=== PATIENT | female | born 1990 | race Caucasian/White ===

== ENCOUNTER 2024-12-31 19:43 | Emergency (ER) | payer BC, SELFPAY ==
--- OUTSIDE RECORDS SUMMARY | 2024-12-31 19:44 | XMS_ITS | Encounter Summary ---
Author Organization [facility] Address [address] [place] [address] Care Team Providers Care Environmental Journalist Name Role Phone Cecil Reza MD Primary Care Provider [phone]- [phone] Encounter Details Date Type Department Care Team (Late st Contact Info) Description 08/12/2015 Nurse Triage Report [facility] ABSTRACTION Lilliam Menendez, RN Social History Tobacco Use Types Packs/Day Years Used Date Smoking Tobacco: Every Day Cigarettes 0.5 10 Alcohol Use Standard Drinks/Week Comments Yes 2.5 (1 standard drink = 0.6 oz p ure alcohol) socially Comments No Sex and Gender Information Value Date Recorded Sex Assigned at Not on file Legal Sex Female 7:24 PM ACCOUNT ANALYST Gender Identity Not on file Sexual Orientation Not on file Occupation Industry Job Start Date Job End Date Not on file Not on file Not on file Not on file documented as of this encounter Progress Notes * Lilliam Menendez RN - 08/12/2015 9:28 PM CST CHART DOCUMENTATION ONLY Call Type: Triage Call Presenting Problem: I have burning pain around the area of my cortizone shot. Report feedback to Dr. Ibrahim. Associated Symptoms: reddened, with slight swelling Onset: 2 hours ago Location: left Deltoid injection Pain Assessment: 1 - 10 with 10 being the most severe pain 6 Treatment so far for current presenting problem: ice pack, ibuprophen, History (Clinical Problems): received cortizone injection today due to bursitis of left shoulder (hypothyroid, Asthma) Medications: reviewed with pt per [facility] Medication reactions: Naprosen <<<<<<<< TRIAGE NOTE >>>>>>>> Triage Note: Surface Plate Inspector Lilliam Menendez added this note on Aug 12 2015 9:28PM: patient will follow care advice given and then follow up with provider tomorrow as needed. <<<<<<<< TRIAGE/OUTCOME >>>>>>>> Guideline Title: Puncture Wound Recommended Disposition: Call Provider within 24 Hours Original Inclination: Call Provider/See in 24 Intended Action: Call or See Provider within 24 hrs Physician Contacted: No Localized redness, drainage, swelling, warmth to touch, pain or a hard, knotty feeling over a vein at a recent venipuncture site (intravenous, blood draw, blood donation site etc.) ? YES UNT ANALYST documented in this encounter Plan of Treatment Upcoming Encounters Date Type Department Care Team (Late st Contact Info) Description 03/03/2025 10:30 AM CDT Office Visit [facility] Internal Medicine Swati Mauro [address] [place] [address] [place] [address] [place] [address] documented as of this encounter Visit Diagnoses Not on filedocumented in this encounter Care Teams Environmental Journalist Relationship Specialty [place] [address] [place] [address] PCP - General Internal Medicine 11/25/22 documented as of this encounter
--- OUTSIDE RECORDS SUMMARY | 2024-12-31 19:44 | XMS_ITS | Encounter Summary ---
Author Organization [facility] Address [address] [place] [address] Care Team Providers Care Sweet Pickle Maker Name Role Phone Cecil Reza MD Primary Care Provider +1- [phone] Reason for Visit * Reason Comments Medication Refill Encounter Details Date Type Department Care Team (Late Contact Info) Description 02/27/2019 Refill [facility] Maternal and Medicine - Medical [place] [address], [place] [address] Gregory Hutchins MD [address] [place] [address] Acquired hypothyroidism Social History Tobacco Use Types Packs/Day Years Used Date Smoking Tobacco: Every Day Cigarettes 0.5 15 Smokeless Tobacco: Never Alcohol Use Standard Drinks/Week Comments Not Currently 2.5 (1 standard drink = 0.6 oz p ure alcohol) socially Comments Yes Sex and Gender Information Value Date Recorded Sex Assigned at Not on file Legal Sex Female 7:24 PM DRAFTER (CAD) ELECTRICAL Gender Identity Not on file Sexual Orientation Not on file Occupation Industry Job Start Date Job End Date Not on file Not on file Not on file Not on file documented as of this encounter Plan of Treatment Upcoming Encounters Date Type Department Care Team (Late Contact Info) Description 03/03/2025 10:30 AM CDT Office Visit [facility] Internal Medicine Swati Mauro [address] [facility] [address] [place] [address] [place] [address] [place] [address] documented as of this encounter Visit Diagnoses Diagnosis Acquired hypothyroidism Unspecified hypothyroidism documented in this encounter Care Teams Sweet Pickle Maker Relationship Specialty [place] [address] [place] [address] PCP - General Internal Medicine 11/25/22 documented as of this encounter
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
--- OUTSIDE RECORDS SUMMARY | 2024-12-31 19:45 | XMS_ITS | Data Portability ---
Author Organization [facility] [place] , [facility] Address [address] [place] [address] Assessment No assessment recorded. Plan of Treatment Reminders Order Date Submit Date Provider Last Modified By Organization Details Last Modified Time Details Appointments None recorded. Lab test, urine 2021 022 lduffe [facility], [address] [place], [address], 13:41:38 Referral None recorded. Procedures None recorded. Surgeries None recorded. Imaging None recorded. Medication Orders None recorded. Patient TargetsNo targets recorded. Patient InstructionsNo instructions recorded. Reason for Referral None Reported. Results Created Date Observation Date Name Description Value Unit Range Abnormal Flag Note LastModifiedBy Organization Detail LastModifiedTime 01/29/20 22 01/28/2022 pregn zita test, urine HCG positi ve Not Available [facility] [address] [place], [address], 01/28/2022 12:06:02 01/31/2001/28/2022 imagi ng/di agnos tic resul t No observ ation record ed. ILENE Marroquin [address], [place], [address], 01/31/2022 08:25:44 Result Notes None recorded. Problems Name Problem SNOMED Code Status Onset Date Resolution Date Notes Provider Name and Address Organization Details Recorded Time Gestatio n period, 32 weeks 1501575 Completed 201810/31/2019 32 weeks gestatio n of pregnanc y; Progress : Stable Added By: Marv Monte Add to Current Problems : NO ProblemS tatus: Resolve Not Available [facility] 2 21:13:22 Normal pregnanc y in multigra franco [id number] Completed 201810/31/2019 Encounte r for supervis ion of other normal pregnanc y, third trimeste r; Progress : Stable Added By: Victorina Rodriguez Add to Current Problems : NO ProblemS tatus: Resolve Not Available [facility] 2 21:13:22 Antenata l screenin g Completed 201810/31/2019 Encounte r for other specifie d antenata l screenin g; Progress : Stable Added By: Brianna Wade Add to Current Problems : NO ProblemS tatus: Resolve Not Available [facility] 2 21:13:15 Hemoglob in A1C - diabetic control finding [id number] Completed 201810/31/2019 Other abnormal glucose; Progress : Stable Added By: Jazlyn Shi Add to Current Problems : NO ProblemS tatus: Resolve Not Available [facility] 2 19:43:19 Situatio n with explicit context Completed 201810/31/2019 Supervis ion of pregnanc y with other poor reproduc tive or obstetri c history, third trimeste r; Progress : Stable Added By: Jazlyn Shi Add to Current Problems : NO ProblemS tatus: Resolve Not Available [facility] 21:13:13 Gestatio n period, 33 weeks [id number] Completed 201810/31/2019 33 weeks gestatio n of pregnanc y; Progress : Stable Added By: Victorina Rodriguez Add to Current Problems : NO ProblemS tatus: Resolve Not Available [facility] 2 21:13:[address] Concept Completed 201810/31/2019 Supervis ion of other high risk pregnanc ies, third trimeste r; Progress : Stable Added By: Brianna Wade Add to Current Problems : NO ProblemS tatus: Resolve Not Available [facility] 2 21:13:22 Gestatio nal diabetes mellitus complica ting pregnanc y [id number] 106 Completed 201810/31/2019 Gestatio nal diabetes mellitus in pregnanc y, controll ed by oral hypoglyc emic drugs; Progress : Stable Added By: Brianna Wade Add to Current Problems : NO ProblemS tatus: Resolve Not Available [facility] 2 19:43:19 Gestatio n period, 38 weeks [id number] Completed 201910/31/2019 38 weeks gestatio n of pregnanc y; Progress : Stable Added By: Brianna Wade Add to Current Problems : NO ProblemS tatus: Resolve Not Available [facility] 21:13:14 Postpart um depressi on [id number] Completed 201910/31/2019 Postpart um depressi on; Progress : Stable Added By: Mira Valiente Add to Current Problems : NO ProblemS tatus: Resolve Not Available [facility] 2 21:13:20 Procedur e on genitour inary system Completed 201910/31/2019 Encounte r for surgical aftercar e followin g surgery on the genitour inary system; Progress : Stable Added By: Michael Tovar Add to Current Problems : NO ProblemS tatus: Resolve Not Available [facility] 19:43:19 Postoper ative care Completed 201910/31/2019 Encounte r for surgical aftercar e followin g surgery on the genitour inary system; Progress : Stable Added By: Michael Tovar Add to Current Problems : NO ProblemS tatus: Resolve Not Available [facility] 2 19:43:19 Acute vaginiti s [id number] Active 2019 Acute vaginiti s; Progress : Stable Added By: Michael Tovar Add to Current Problems : YES ProblemS tatus: Current Not Available [facility] 21:13:15 Infectio n by Trichomo catie [id number] Active 2019 Trichomo niasis, unspecif ied; Progress : Stable Added By: Lissett Navarrete i Add to Current Problems : YES ProblemS tatus: Current Not Available [facility] 2 21:13:12 Problem Notes None recorded. Procedures Surgical History Date Name Laterality Status Provider Name and Address Organization Details Recorded Time section completed [facility] 01/10/2022 22:36:58 Carpal tunnel surgery [facility] [place] 01/10/2022 22:37:06 Imaging Results None recorded. Procedure Notes None recorded. Medical Equipment None Reported. Allergies Allergen ID Allergen Name Allergen Category Reaction Reaction Severity Criticality Documentation Date Start Date Code Code System Note Provider Name and Address Organization Details Recorded Time 166608 Augmentin medicatio n Not available Not available Not available 03/26/20212018 46399 2 RxNorm Sever ity: Moder ate; Not Available [facility] 01:12:23 025695 Compazine medicatio n Not available Not available Not available 03/26/20212018 27699 6 RxNorm Sever ity: Moder ate; Not Available [facility] 01:12:23 938972 naproxen medicatio n Not available Not available Not available 03/26/20212018 7258 RxNorm Sever ity: Moder ate; Not Available [facility] 01:12:23 Medications Name Sig Start Date Stop Date Status Note LastModified by Organization Details LastModified Time celecoxib 200 mg capsule TAKE 1 CAPSULE BY MOUTH TWICE DAILY active Not Available Not Available No t Available cyclobenz aprine 10 mg tablet TAKE 1 TABLET BY MOUTH THREE TIMES DAILY NEEDED FOR SPASM active Not Available Not Available No t Available metformin 500 mg tablet take 1 tablet (500 mg) by oral route 2 times per day with morning andeveni ng meals 10/30 completed metFORMI N 500 mg oral tablet RxNorm: [id number] Allow Substitu tion: False Refill Denied: No Refill DateOccu rred: 05/07/20 19 Edited by: Lissett Carbajal ) on 10/31/19 Stopped by: seth rosa(Lissett Mckeon ) on 10/31/19 20 Not Available Not Available Not Available levothyro xine 175 mcg tablet TAKE 1 TABLET BY MOUTH ONCE DAILY IN THE MORNING active Not Available Not Available No t Available albuterol sulfate 0.63 mg/3 mL solution for nebulizat ion 10/30 completed albutero l sulfate 0.63 mg/3 mL Inhalati on Solution for Nebuliza tion RxNorm: [id number] Allow Substitu tion: False Refill Denied: No Refill DateOccu rred: 10/24/19 Edited by: Lissett Carbajal ) on 10/31/19 Stopped by: Lissett Carbajal ) on 10/31/19 Not Available Not Available Not Available bupropion HCl SR 150 mg tablet,12 hr sustained -release TAKE 2 TABLETS BY MOUTH IN THE MORNING AND TAKE 1 TAB BY MOUTH IN THE EVENING active Not Available Not Available No t Available Euthyrox 200 mcg tablet TAKE 1 TABLET BY MOUTH ONCE DAILY active Not Available Not Available No t Available nabumeton e 750 mg tablet TAKE 1 TABLET BY MOUTH TWICE DAILY active Not Available Not Available No t Available clindamyc in HCl 300 mg capsule TAKE 1 CAPSULE BY MOUTH EVERY 8 HOURS FOR 5 DAYS active Not Available Not Available No t Available azithromy aishwarya 250 mg tablet TAKE 2 TABLETS BY MOUTH ON DAY 1, AND THEN TAKE 1 TABLET BY MOUTH ONCE A DAY ON DAY 2 THROUGH DAY 5 active Not Available Not Available No t Available fluconazo le 150 mg tablet take 1 tablet (150 mg) by oral route once, repeat in 3 days if symtpoms unresolv ed 10/30 completed fluconaz ole 150 mg oral tablet RxNorm: [id number] Allow Substitu tion: True Refill Denied: No Edited by: Lissett Carbajal ) on 10/31/19 Stopped by: seth rosa(Lissett Mckeon ) on 10/31/19 Not Available Not Available Not Available clomiphen e citrate 50 mg tablet TAKE 2 TABLETS BY MOUTH DAILY ON DAYS 5-9 OF CYCLE active Not Available Not Available No t Available liothyron ine 25 mcg tablet TAKE 1 TABLET BY MOUTH ONCE DAILY active Not Available Not Available No t Available meloxicam 15 mg tablet TAKE 1 TABLET BY MOUTH ONCE DAILY active Not Available Not Available No t Available metronida zole 0.75 % (37.5 mg/5 gram) vaginal gel INSERT 1 APPLICAT ORFUL VAGINALL Y DAILY AT BEDTIME FOR 5 DAYS active Not Available Not Available No t Available ondansetr on HCl 4 mg tablet TAKE 1 TABLET BY MOUTH EVERY 8 HOURS NEEDED FOR NAUSEA active Not Available Not Available No t Available metronida zole 500 mg tablet TAKE 1 TABLET BY MOUTH TWICE DAILY active Not Available Not Available No t Available liothyron ine 5 mcg tablet TAKE 2 TABLETS BY MOUTH ONCE DAILY active Not Available Not Available No t Available tramadol 50 mg tablet TAKE 1 TABLET BY MOUTH ONCE DAILY NEEDED FOR PAIN active Not Available Not Available No t Available amoxicill in 500 mg tablet TAKE 1 TABLET BY MOUTH TWICE DAILY FOR 10 DAYS 01/28 completed Not Available Not Available Not Available paroxetin e 20 mg tablet TAKE 1 TABLET BY MOUTH ONCE DAILY active Not Available Not Available No t Available diclofena c sodium 75 mg tablet,de layed release TAKE 1 TABLET BY MOUTH TWICE DAILY NEEDED FOR PAIN. active Not Available Not Available No t Available Euthyrox 50 mcg tablet TAKE 1 TABLET BY MOUTH ONCE DAILY IN THE MORNING active Not Available Not Available No t Available azelastin e 137 mcg (0.1 %) nasal spray USE 2 SPRAY(S) IN EACH NOSTRIL TWICE DAILY active Not Available Not Available No t Available methylpre dnisolone 4 mg tablets in a dose pack TAKE DIRECTED PER PACKAGE INSTRUCT ION active Not Available Not Available No t Available albuterol sulfate HFA 90 mcg/actua tion aerosol inhaler INHALE 2 PUFFS BY MOUTH EVERY 8 HOURS NEEDED FOR SHORTNES S OF BREATH active Not Available Not Available No t Available norethind amaris (contrace ptive) 0.35 mg tablet TAKE 1 TABLET BY MOUTH DAILY active Not Available Not Available No t Available Columb[place] 5 mg-325 mg tablet take 1 tablet by oral route every 4 hours as needed for pain 10/23 completed [place] 5-325 mg oral tablet RxNorm: [id number] Allow Substitu tion: True Refill Denied: No Edited by: Roxann Salas ) on 10/24/19 Stopped by: Roxann Salas ) on 10/24/19 20 Not Available Not Available Not Available ondansetr on 4 mg disintegr ating tablet DISSOLVE 1 TABLET ON TOP OF TONGUE THEN SWALLOW WITH SALIVA EVERY 8 HOURS NEEDED FOR NAUSEA/E MESIS. active Not Available Not Available No t Available Lovenox 40 mg/0.4 mL subcutane ous syringe inject 0.4 millilit er (40 mg) by subcutan eous route twice daily 10/23 completed Lovenox 40 mg/0.4 mL subcutan eous Syringe RxNorm: [id number] Allow Substitu tion: True Refill Denied: No Edited by: Roxann Salas ) on 10/24/19 Stopped by: Roxann Salas ) on 10/24/19 Not Available Not Available Not Available Adderall XR 15 mg capsule,e xtended release TAKE 1 CAPSULE BY MOUTH ONCE DAILY IN THE MORNING 01/28 completed Not Available Not Available Not Available chlorhexi dine gluconate 0.12 % mouthwash SWISH 15ML BY MOUTH FOR 30 SECONDS AND SPIT TWICE DAILY NEEDED active Not Available Not Available No t Available heparin (porcine) 10/23 completed heparin (porcine ) RxNorm: [id number] Allow Substitu tion: False Refill Denied: No Refill DateOccu rred: 05/17/20 19 Edited by: Roxann Salas ) on 10/24/19 20 Stopped by: Roxann Salas ) on 10/24/19 Not Available Not Available Not Available 10/30 completed Allow Substitu tion: False Refill Denied: No Refill DateOccu rred: 05/07/20 19 Edited by: Lissett Carbajal ) on 10/31/19 20 Stopped by: seth rosa(Lissett Mckeon ) on 10/31/19 20 Not Available Not Available Not Available Wellbutri n SR 10/30 completed Wellbutr in SR RxNorm: [id number] Allow Substitu tion: False Refill Denied: No Refill DateOccu rred: 05/07/20 19 Edited by: Lissett Carbajal ) on 10/31/19 20 Stopped by: seth rosa(Lissett Mckeon ) on 10/31/19 20 Not Available Not Available Not Available Symbicort 80 mcg-4.5 mcg/actua tion HFA aerosol inhaler INHALE 2 PUFFS BY MOUTH TWICE DAILY active Not Available Not Available No t Available levocetir izine 5 mg tablet TAKE 1 TABLET BY MOUTH ONCE DAILY active Not Available Not Available No t Available Allergy Relief (cetirizi ne) 10 mg tablet TAKE 1 TABLET BY MOUTH ONCE DAILY active Not Available Not Available No t Available TYPEWRITER OPERATOR AUTOMATIC-PNV-DH A 28 mg iron-1 mg-200 mg capsule TAKE 1 CAPSULE BY MOUTH ONCE DAILY active Not Available Not Available No t Available Trelegy Ellipta 100 mcg-62.5 mcg-25 mcg powder for inhalatio n INHALE 1 PUFF ONCE DAILY. RINSE MOUTH AFTER USE. active Not Available Not Available No t Available ID NOW COVID-19 Test Kit TEST DIRECTED TODAY 01/28 completed Not Available Not Available Not Available Vitals None Recorded Social History None recorded. Functional Status None recorded. Mental Status None recorded. Family History Relationship Description Onset Age of this Age Resolved Age Notes LastModified by Organization Details LastModified Time Father No current problems or disability [email or web address] Not available 01/2022 22:39:05 Mother No current problems or disability [email or web address] Not available 01/2022 22:39:05 Medical History Condition Response Hypothyroidism Y Deep Vein Thrombosis Y Asthma Y Pulmonary Embolism Y Gynecological History Statement/Question Response Date of Last Pap Smear Current Control Method None Age at Menarche 12 Obstetrics History GPAL:G 4 P 4 0 2 1 Type Value Full Term 4 Spontaneous 2 Living 1 Total 4 Past Encounters Encounter ID Performer Location Encounter Start Date Encounter Closed Date Diagnosis/Indication Diagnosis SNOMED-CT Code Diagnosis ICD10 Code Diagnosis Note [id number] NISHA HARTLEY [facility] [address] [place] [address] 01/28/2022 12:00:00 01/28/2022 13:41:50 [id number] Z33.1 Health Concerns Section Related Observation LastModified by Organization Detai ls LastModified Time None Recorded Concern Status LastModified by Organization Details LastModified Time None Recorded Advance Directives Directive None Recorded Payers Insurance Date Sequence Insurance Name Policy Number Policy Fine Covered Member ID Fine Member ID Guarantor Name 01/31/2022 1 [facility] Willa Preciado [id number] Willa Preciado OBGyn Episode Ob Episode Information Episode Created Date Number of Fetuses Patient Bloodtype Patient rh Status Prepregnancy Weight lbs Domestic Partner Domestic Partner Phone Father Name [employer] Status 08/20/19 22 1 CLOSED Fetus Data First Name Last Name Admitted to NICU Weight (g) Sex Living Outcome Pediatric Complications Fetus ID Race Codes Race Delivery Type [phone] F [id number] Dexter Calculation Initial Dexter Date Initial Exam Date Initial Exam Provider Initial Ultrasound Date Last Menstrual Period Date Ultra Sound Weeks Gestation 0 Eighteen To Twenty Week Dexter Update Ultra Sound Date Fundal Height At Umbil Quickening Date Ultra Sound Latest Weeks Gestation Final Dexter Confirmed By Final Dexter Confirmed Date Final Dexter Date Ultra Sound Latest Days Gestation 0 0 Menstrual History Last Menstrual Date Menses Monthly On Bcp Conception Prior Menses Frequency Hcg Plus Date Menarche Onset Age Delivery Information Delivery Date Delivery Type Labor Anesthesia Weeks Gestation Incision Type Labor Labor Length Hrs Delivered By Post Complications Tubal Sterilization Discharge Date Comments 8 None 238 true FDIU Discharge Information Feeding Method Contraceptive Method Maternal HG B and HCT Levels Ob Episode Information Episode Created Date Number of Fetuses Patient Bloodtype Patient rh Status Prepregnancy Weight lbs Domestic Partner Domestic Partner Phone Father Name [employer] Status 08/20/19 22 1 CLOSED Fetus Data First Name Last Name Admitted to NICU Weight (g) Sex Living Outcome Pediatric Complications Fetus ID Race Codes Race Delivery Type 2721.55 2 F [id number] Dexter Calculation Initial Dexter Date Initial Exam Date Initial Exam Provider Initial Ultrasound Date Last Menstrual Period Date Ultra Sound Weeks Gestation 0 Eighteen To Twenty Week Dexter Update Ultra Sound Date Fundal Height At Umbil Quickening Date Ultra Sound Latest Weeks Gestation Final Dexter Confirmed By Final Dexter Confirmed Date Final Dexter Date Ultra Sound Latest Days Gestation 0 0 Menstrual History Last Menstrual Date Menses Monthly On Bcp Conception Prior Menses Frequency Hcg Plus Date Menarche Onset Age Delivery Information Delivery Date Delivery Type Labor Anesthesia Weeks Gestation Incision Type Labor Labor Length Hrs Delivered By Post Complications Tubal Sterilization Discharge Date Comments 0 271 false Discharge Information Feeding Method Contraceptive Method Maternal HG B and HCT Levels
--- OUTSIDE RECORDS SUMMARY | 2024-12-31 19:45 | XMS_ITS | Clinical Summary ---
Author Organization [facility] Address [address] [place] [address] Phone Care Team Providers Care Computer Systems Integrator Name Role Phone Cecil Reza MD Primary Care Provider [phone]- [phone] Allergies Active Allergy Reactions Criticality Noted Date Comments Amoxicillin-Pot Clavulanate Nausea and Vomiting Low 09/06/2017 Banana Rash Low 02/01/2016 Latex Rash Low 12/03/2018 Metoclopramide Hcl Other (See Comments) 03/07/2016 irritable Naproxen Nausea and Vomiting Low 05/15/2014 Prochlorperazine Other (See Comments) 01/30/2016 Irritable, anxiety Medications Allergy Relief, cetirizine, 10 mg tabletIndications :Allergic rhinitis, unspecified seasonality, unspecified trigger Take 1 tablet by mouth once daily 90 Tablet 01/28/20 22 Active methadone HCl (METHADONE INTENSOL ORAL) Take 170 mg by mouth daily. Active ferrous sulfate 325 mg (65 mg iron) tablet Take 60 mg by mouth daily. Active cholecalciferol, vitamin D3, 1,000 unit Take 1,000 Units by mouth daily. 11/11/19 23 Active liothyronine 25 mcg tablet Take 25 mcg by mouth daily. Active metFORMIN (GLUCOPHAGE) 500 mg tablet Take 1,000 mg by mouth 2 times daily. 11/10/19 23 Active ibuprofen (MOTRIN) 800 mg tablet Take 800 mg by mouth every 6 hours as needed for Pain. 10/15/19 23 Active levothyroxine 300 mcg tablet Take 300 mcg by mouth daily. Active celecoxib (CeleBREX) 200 mg capsule Take 1 Capsule (200 mg) by mouth 2 times daily. 200 Capsule 3 06/19/19 25 Active triamcinolone acetonide (KENALOG) 0.1 % Cream Apply to affected area 2 times daily. 45 Gram 06/28/19 25 Active norethindrone-e.e stradioL-iron (Lo Loestrin Fe) 1 mg-10 mcg (24)/10 mcg (2) Tablet per tabletIndications :Abnormal uterine bleeding Take 1 Tablet by mouth daily. 84 Tablet 06/28/19 25 Active docusate sodium (COLACE) 100 mg capsule Take 1 Capsule (100 mg) by mouth 2 times daily. 60 Capsule 09/11/19 25 Active Trelegy Ellipta 100-62.5-25 mcg Disk with DeviceIndications :Mild intermittent asthma without complication INHALE 1 PUFF ONCE DAILY RINSE MOUTH AFTER USE 60 Each 3 12/12/19 25 Active albuterol-budeson vanna (Airsupra) 90-80 mcg/actuation HFA Aerosol InhalerIndication s:Moderate persistent asthma without complication Take 11 Grams by inhalation every 6 hours. 11 Gram 3 12/12/19 25 Active amphetamine-dextr oamphetamine (Adderall XR) 30 mg Extended Release 24 hour capsuleIndication s:Attention deficit hyperactivity disorder (ADHD), unspecified ADHD type Take 1 Capsule (30 mg) by mouth daily in the morning. Max Daily Amount: 30 mg 30 Capsule 12/20/19 25 Active Trelegy Ellipta 100-62.5-25 mcg Disk with DeviceIndications :Mild intermittent asthma without complication INHALE 1 PUFF ONCE DAILY RINSE MOUTH AFTER USE 60 Each 10/23/19 25 025 Discontin ued(Reord er) amphetamine-dextr oamphetamine (Adderall XR) 30 mg Extended Release 24 hour capsuleIndication s:Attention deficit hyperactivity disorder (ADHD), unspecified ADHD type Take 1 Capsule (30 mg) by mouth daily in the morning. Max Daily Amount: 30 mg 30 Capsule 10/23/19 25 025 Discontin ued(Reord er) albuterol-budeson vanna (Airsupra) 90-80 mcg/actuation HFA Aerosol InhalerIndication s:Moderate persistent asthma without complication Take 11 Grams by inhalation every 6 hours. 11 Gram 3 10/23/19 25 025 Discontin ued(Reord er) amphetamine-dextr oamphetamine (Adderall XR) 30 mg Extended Release 24 hour capsuleIndication s:Attention deficit hyperactivity disorder (ADHD), unspecified ADHD type Take 1 Capsule (30 mg) by mouth daily in the morning. Max Daily Amount: 30 mg 30 Capsule 12/12/19 25 025 Discontin ued(Reord er) Active Problems Problem Noted Date Diagnosed Date [facility] 06/21/22 - girl Lu - JW 06/21/2022 headache in third trimester 05/30/2022 Pain of round ligament affecting , ante 04/21/2022 Vaginal bleeding in 12/21/2021 Chronic midline low back pain without sciatica 0 03/02/2020 History of depression 12/24/2018 Personal history of DVT (deep vein thrombosis) 0 12/03/2018 Cannabis use disorder, mild, abuse 11/21/2017 Mild intermittent asthma without complication PCOS (polycystic ovarian syndrome) 11/21/2017 Acquired hypothyroidism 11/21/2017 Tobacco abuse 11/21/2017 Bacterial vaginitis Resolved Problems Problem Noted Date Diagnosed Date Resolved Date Uterine contractions during 06/21/2022 06/21/2022 History of drug abuse (Methamphetamine) 02/25/2019 03/02/2020 Severe episode of recurrent major depressive disorder, without psychotic features 11/21/2017 KHLOE (generalized anxiety disorder) 11/21/2017 12/24/2018 Gastroesophageal reflux dise ase without esophagitis 11/21/2017 03/13/2019 Leukocytosis 10/06/2016 12/24/2018 Gastritis 10/06/2016 12/24/2018 Depression 05/10/2016 12/24/2018 NAFLD (nonalcoholic fatty liver disease) 04/27/2016 10/10/2016 Functional vomiting 02/04/2016 10/11/19 17 Anxiety 02/04/2016 12/24/2018 Cyst of right ovary 02/04/2016 12/25/19 19 Overview (02/04/2016): 2 cm Nausea and vomiting 01/30/2016 12/25/19 19 Tobacco use 01/04/2015 03/13/2019 Routine general medical exam ination at a health care facility 01/04/2015 12/24/2018 Laceration of ankle 01/04/2015 12/25/19 19 Depression, major, severe recurrence 01/04/2015 12/24/2018 Melena 05/28/2014 10/10/2016 Drug abuse, amphetamine type 05/28/2014 03/13/2019 Hypothyroid in , an tepartum, second trimester 05/28/2014 03/02/2020 PUD (peptic ulcer disease) 05/28/2014 0 12/24/2018 Abdominal pain 05/27/2014 12/24/2018 Generalized abdominal pain 0 10/10/2016 Threatened in first trimester 12/24/2018 Thromboembolism 12/24/2018 Abdominal cramping affecting 12/24/2018 Encounters Date Type Department Care Team Description 12/18/2024 External Device Data [facility] ABSTRACTION Provider, Abstract 12/18/2024 External Device Data [facility] ABSTRACTION Provider, Abstract 12/16/2024 Medication Prior Auth Encounter [facility] Prescription Management Dept [address] [place] [address] [place] [address] Maria G Quinones, PHARMACIST 12/10/2024 [facility] Internal Medicine [facility] [address] [place] [address] Judy Zimmer FNP Moderate persistent asthma without complication 12/10/2024 [facility] SENIOR PRIVATE CLIENT ADVISOR - Medical [facility] [address] [facility] [address] [place] [phone] Angela Guajardo, FAREED 12/10/2024 [facility] Internal Medicine [facility] [address] [place] [address] Cecil Reza MD Mild intermittent asthma without complication; Attention deficit hyperactivity disorder (ADHD), unspecified ADHD type 11/20/2024 External Device Data [facility] ABSTRACTION Provider, Abstract 10/22/2024 [facility] SENIOR PRIVATE CLIENT ADVISOR [facility] [address] [place] [address] Narinder Roberts MD 10/22/2024 [facility] Internal Medicine Swati Mauro [address] [place], [place] [address] Judy Zimmer FNP Moderate persistent asthma without complication 10/22/2024 [facility] Internal Medicine [place] Ma[place] [address] [place] [address] Cecil Reza MD Mild intermittent asthma without complication; Attention deficit hyperactivity disorder (ADHD), unspecified ADHD type from Last 3 Months Immunizations Immunization Administration Dates Next Due (ADACEL/BOOSTRIX)(10 YR UP) TDAP VACCINE, 0.5ML, IM 04/19/2022,06/10/2019,06/10/2019,04/26,02/12/2017,02/12/2017,06/09/2015 ,06/09/2015 (PNEUMOVAX 23)(50 YRS UP) PN EUMOCOCCAL POLYSACCHARIDE (PPV23) 0.5 ML, IM 01/31/2016,03/17/2010 (TENIVAC)(7 YRS UP) TETANUS AND DIPHTHERIA TOXOIDS, ADSORBED (5 LF OF TETANUS TOXOID AND 2 LF OF DIPHTHERIA TOXOID), 0.5ML (PF), IM 06/11/2008 (VARIVAX)(12 MOS UP)VARICELL A VIRUS VACCINE (PF) 0.5 ML, SUB CUT 05/05/2020 INFLUENZA VACCINE QUADRIVALE NT 3 YR UP PF IM 02/09/2017 INFLUENZA VACCINE QUADRIVALE NT 6 MOS UP PF IM 02/23/2022,06/09/2021,03/02/2020,04/26,02/12/2018 INFLUENZA VACCINE TRIVALENT SPLIT VIRUS, (6 MOS UP), 0.5ML (PF), IM 02/29/2024 Influenza Vaccine Tri Split 4+ Pf Im 02/03/2010 Influenza, Unspecified Formulation 02/25,04/05/2019,03/09/2016,03/17 Pneumococcal Polysaccharide Vacc 23-neela IM SCHIP 03/17/2010,02/03/2010 Family History Medical History Relation Name Comments Healthy Daughter 1 Healthy Daughter 2 Unknown Father High Cholesterol Maternal Grandmother Olivia Hypertension Maternal Grandmother Olivia Diabetes Maternal Uncle Heart Disease Mother Samira fr om myocarditis. Sudden onset Colon Cancer Neg Hx Relation Name Status Comments Daughter 1 Alive Daughter 2 Alive Father Other Maternal Grandmother Olivia Maternal Uncle Mother Samira Social History Tobacco Use Types Packs/Day Years Used Date Smoking Tobacco: Every Day Cigarettes 1 15 Smokeless Tobacco: Never Tobacco Cessation:Ready to Q uit: Not Asked; Counseling Given: Not Answered Comments:smoking 1/2 pack a day Alcohol Use Standard Drinks/Week Comments Not Currently 3 (1 standard drink = 0.6 oz pur e alcohol) socially Comments No Sex and Gender Information Value Date Recorded Sex Assigned at Not on file Legal Sex Female 7:24 PM LOADING DOCK HELPER Gender Identity Not on file Sexual Orientation Not on file Occupation Industry Job Start Date Job End Date Not on file Not on file Not on file Not on file Last Filed Vital Signs Vital Sign Reading Time Taken Comments Blood Pressure 110/74 04/18/2024 1:05 PM LOADING DOCK HELPER Pulse 84 04/18/2024 1:05 PM LOADING DOCK HELPER Temperature 36.6 C (97.8 F) 04/18/2024 1:05 PM LOADING DOCK HELPER Respiratory Rate 18 06/26/2022 7:52 AM LOADING DOCK HELPER Oxygen Saturation 98% 04/18/2024 1:05 PM LOADING DOCK HELPER Inhaled Oxygen Concentration - - Weight 102.1 kg (225 lb) 04/18/2024 1:05 PM LOADING DOCK HELPER Height 170.2 cm (5' 7) 04/18/2024 1:05 PM LOADING DOCK HELPER Body Mass Index 35.24 04/18/2024 1:05 PM LOADING DOCK HELPER Plan of Treatment Upcoming Encounters Date Type Department Care Team (Late st Contact Info) Description 03/03/2025 10:30 AM CDT Office Visit [facility] Internal Medicine Swati Mauro [address] [place] [address] [place] [address] [place] [address] Health Maintenance Due Date Last Done Comments HPV VACCINES (1 - 3-dose series) 2004 DIABETES ANNUAL RETINAL EXAM 2007 DIABETES MICROALBUMIN ANNUAL SCREEN 2007 LDL CHOLESTEROL ANNUAL 2007 HEPATITIS B VACCINES (1 of 3 - 19+ 3-dose series) 2008 DIABETES ANNUAL FOOT EXAM 07/06/2022 07/06/2021 DIABETES HBA1C Q 6 MONTHS 07/30/20222021, 05/05/2020, 09/06/2017 DIABETES: A1C (Auto Order) 01/27/202301/27, 05/05/2020, 09/06/2017 PAP SMEAR 04/21/2024 04/21/2021, 03/05, 10/17/2017 INFLUENZA VACCINE (#1) 2025 , 02/23/2022, 06/09/2021, Additional history exists CERVICAL CANCER SCREENING 04/21/2026 HPV/Cotest (21-29) 04/21/2026 04/21/2021, 1 , 10/17/2017 HPV/Cotest (30-65) 04/21/2026 04/21/2021, 1 , 10/17/2017 DTAP/TDAP/TD VACCINES (9 - T d or Tdap) 04/19/2032 04/19/2022, 06/10/2019, 06/10/2019, Additional history exists Procedures Procedure Name Priority Date/Time Associated Diagnosis Comments HEMOGLOBIN A1C Routine 01/27/2022 11:18 AM CDT CERV/VAG CYTO SCREEN PAP RLFX HPV Routine 04/21/2021 12:00 AM LOADING DOCK HELPER Well woman exam with routine gynecological exam from Last 3 Months or Most Recently Relevant to Health Maintenance Results * HEMOGLOBIN A1C (01/27/2022 11:18 AM CDT) HEMOGLOBIN A1C 4.9 <5.7 % of total Hgb [facility] Comment: For the purpose of screening for the presence of diabetes: <5.7% Consistent with the absence of diabetes 5.7-6.4% Consistent with increased risk for diabetes (prediabetes) > or =6.5% Consistent with diabetes This assay result is consistent with a decreased risk of diabetes. Currently, no consensus exists regarding use of hemoglobin A1c for diagnosis of diabetes in children. According to [place] Diabetes Association (ADA) guidelines, hemoglobin A1c <7.0% represents optimal control in non- diabetic patients. Different metrics may apply to specific patient populations. Standards of Medical Care in Diabetes(ADA). ESTIMATED AVERAGE GLUCOSE (MG/DL) 94 mg/dL [facility] [employer] [facility] ESTIMATED AVERAGE GLUCOSE (MMOL/L) 5.2 mmol/L [facility] hector [facility] Comment: FASTING:UNKNOWN FASTING: UNKNOWN Test Performed at: [place] [address] [address] [place] [address] Erica[facility]Mis Howe Vo 01/27/2022 11:1 8 AM CDT 01/27/2022 11:20 AM CDT Haylee Hong MD CHEMISTRY ORDERABLES Final Result [facility] [phone] [place] [address] [address] [place] [address] * CERV/VAG CYTO SCREEN PAP RLFX HPV (04/21/2021 12:00 AM LOADING DOCK HELPER) CLINICAL INFORMATION [facility] Comment:SCREENING LAST MENSTRUAL PERIOD [facility] Comment:INFORMATION NOT PROV IDED PREV PAP: [facility] Comment:INFORMATION NOT PROV IDED PREV BX: [facility] Comment:INFORMATION NOT PROV IDED SOURCE [facility] Comment:Endocervix ADEQUACY: [facility] Comment: Satisfactory for evaluation. Endocervical/transformation zone component present. Age and/or menstrual status not provided PAP INTERP [facility] Comment:Negative for intraep ithelial lesion or malignancy. COMMENT (PAP TEST) [facility] Comment: This Pap test has been evaluated with computer assisted technology. CHIEF CATALYST OPERATOR: [facility] Comment: SOUTH, CT(ASCP) CT screening location: [place] [address] [address] [place] [address] EXPLANATORY NOTE [facility] Comment: EXPLANATORY NOTE: The Pap is a screening test for cervical cancer. It is not a diagnostic test and is subject to false negative and false positive results. It is most reliable when a satisfactory sample, regularly obtained, is submitted with relevant clinical findings and history, and when the Pap result is evaluated along with historic and current clinical information. Test Performed at: [place] [address] [address] [place] [address] [facility] Vo Genital SWAB OF ENDOCERVIX / Unknown 04/21/2021 04/22/2021 9:27 PM LOADING DOCK HELPER us Narinder Roberts MD PATHOLOGY/CYTOLOGY ORDERABL ES Final Result [facility] [address] [place] [address] from Last 3 Months or Most Recently Relevant to Health Maintenance Insurance RX INFOCROSSING Medicaid RX [employer] PLANS (INTERNAL) [facility] [place] [address] [employer]ANGE [place] Advance Directives For more information, please contact: [phone] * Full Code (Latest Code Status on File) Date Activated Date Inactivated Comments 06/22/2022 2:48 AM 06/26/2022 2:45 PM * Full Code Date Activated Date Inactivated Comments 06/21/2022 8:08 PM 06/22/2022 2:48 AM * Full Code Date Activated Date Inactivated Comments 05/30/2022 3:32 PM 05/30/2022 7:19 PM * Full Code Date Activated Date Inactivated Comments 04/21/2022 11:24 AM 04/21/2022 4:10 PM * Full Code Date Activated Date Inactivated Comments 12/21/2021 2:25 PM 12/21/2021 6:51 PM Care Teams Computer Systems Integrator Relationship Specialty [place] [address] [place] [address] PCP - General Internal Medicine 11/25/22
--- OUTSIDE RECORDS SUMMARY | 2024-12-31 19:45 | XMS_ITS | Encounter Summary ---
Author Organization [facility] Address [address] [place] [address] Care Team Providers Care Sleeve Setter Name Role Phone Cecil Reza MD Primary Care Provider [phone]- [phone] Reason for Visit * Reason Comments Medication Refill Encounter Details Date Type Department Care Team (Late st Contact Info) Description 04/18/2016 Refill [facility] [address] , [address] [phone] Loni Kemp, PANELBOARD TANK PUMPER [address] [address] Social History Tobacco Use Types Packs/Day Years Used Date Smoking Tobacco: Every Day Cigarettes 1 12 Alcohol Use Standard Drinks/Week Comments Yes 2.5 (1 standard drink = 0.6 oz p ure alcohol) socially Comments No Sex and Gender Information Value Date Recorded Sex Assigned at Not on file Legal Sex Female 7:24 PM PAPER SEALER Gender Identity Not on file Sexual Orientation Not on file Occupation Industry Job Start Date Job End Date Not on file Not on file Not on file Not on file documented as of this encounter Plan of Treatment Upcoming Encounters Date Type Department Care Team (Late st Contact Info) Description 03/03/2025 10:30 AM CDT Office Visit [facility] Internal Medicine Swati Mauro [address] [place] [address] [place] [address] [place] [address] documented as of this encounter Visit Diagnoses Not on filedocumented in this encounter Care Teams Sleeve Setter Relationship Specialty [place] [address] [facility] [facility] [address] [place] [address] PCP - General Internal Medicine 11/25/22 documented as of this encounter
--- OUTSIDE RECORDS SUMMARY | 2024-12-31 19:45 | XMS_ITS | Clinical Summary ---
Author Organization [facility] Address [address] [place] [address] Care Team Providers Care Rn Ent Name Role Phone Narinder Roberts MD Primary Care Provider Allergies Active Allergy Reactions Criticality Noted Date Comments Latex Rash Medium 04/23/2019 Medications buPROPion SR 150 MG 12 hr tablet TK 2 TS PO QAM AND 1 T QPM 4 04/05/2019 Active levothyroxine 200 MCG tablet Take 200 mcg by mouth every morning. 4 04/02/2019 Active metFORMIN 500 MG tablet TAKE 1 TABLET BY MOUTH TWICE A DAY WITH MEALS 0 09/17/2018 Active polyethylene glycol powder TAKE 17 G BY MOUTH DAILY MIX 1 SCOOP (17G) IN 8OZ OF WATER AND DRINK DAILY. 0 11/08/2018 Active aspirin 81 MG chewable tablet Chew 81 mg by mouth daily. Active vitamin A 45140 UNIT capsule Take 2,000 Units by mouth daily. Active Family History Medical History Relation Comments MYOCARDITIS Mother Relation Status Comments Mother Social History Tobacco Use Types Packs/Day Years Used Date Smoking Tobacco: Every Day Cigarettes Smokeless Tobacco: Never Alcohol Use Standard Drinks/Week Comments No 0 (1 standard drink = 0.6 oz pur e alcohol) AUDIT-C Answer Date Recorded Frequency of Alcohol Consumption Never 04/23/2019 Average Number of Drinks Not on file 019 Frequency of Binge Drinking Not on file 04/05 Comments No Sex and Gender Information Value Date Recorded Sex Assigned at Not on file Legal Sex Female 8:44 AM DATA SCIENCE AND IOT MANAGER Gender Identity Not on file Sexual Orientation Not on file Last Filed Vital Signs Vital Sign Reading Time Taken Comments Blood Pressure 119/60 04/23/2019 9:30 AM DATA SCIENCE AND IOT MANAGER Pulse 98 04/23/2019 9:30 AM DATA SCIENCE AND IOT MANAGER Temperature - - Respiratory Rate - - Oxygen Saturation 98% 04/23/2019 9:12 AM DATA SCIENCE AND IOT MANAGER Inhaled Oxygen Concentration - - Weight - - Height - - Body Mass Index - - Plan of Treatment Health Maintenance Due Date Last Done Comments Cervical Cancer Screening Pa p Smear (Age 30 to 64) Every 3 Years 1989 Annual Physical 1992 Hepatitis C 2007 DTaP, Tdap and Td Vaccines ( 1 - Tdap) 2008 Hepatitis B Vaccines (1 of 3 - 19+ 3-dose series) 2008 HPV Vaccines (1 - 3-dose SCD M series) 2016 Cervical Cancer Screening Pa p with HPV Testing (Age 30 to 64) Every 5 Years 2019 Cervical Cancer Screening with HPV 2019 COVID-19 Vaccine (2023-2 5 season) 2024 Meningococcal B Vaccine Aged Out No l onger eligible based on patient's age to complete this topic Meningococcal Vaccine Aged Out No jimi riley eligible based on patient's age to complete this topic Pneumococcal Vaccine: Pediat rics (0 to 5 Years) and At-Risk Patients (6 to 49 Years) Aged Out No longer eligible b ased on patient's age to complete this topic RSV Immunizations Under 20 Months Aged Out No longer eligible based on patient's age to complete this topic Care Teams Rn Ent Relationship Specialty Start Date End Date Narinder Roberts MD PCP - General OBGYN 04/23/19
--- OUTSIDE RECORDS SUMMARY | 2024-12-31 19:45 | XMS_ITS | Clinical Summary ---
Author Organization [facility] Address [address] [place] [address] Care Team Providers Care Artillery Meteorological Man Name Role Phone Nathan Lerner MD Primary [...] pain) 30 tablet 9 Active vit iron msg-fgnmd-yig 29 mg iron- 1 mg-25 mg tablet [...] 1 tablet by mouth daily 1 Active FISHING GEAR MECHANIC-PNV-DHA 28 mg iron- 1 mg-200 mg capsule [...] 05/05/2020 Assessment & Plan (06/09/2020 9:55 PM CAR DISPATCHER): Reviewed patient's last MRI study which revealed mild spondylosis and mild disc space narrowing at L4- L5 level. Patient is to follow-up with orthopedic back surgeon. Assessment & Plan (05/05/2020 3:22 PM CAR DISPATCHER): Refer to pain management. Requesting refill of tramadol. Explained our office policy is not to refill controlled substances on the first visit. Will review previous records. Hypothyroidism 05/05/2020 Overview (05/05/2020): Order tsh, awaiting results Class 1 obesity without seri ous comorbidity with body mass index (BMI) of 33.0 to 33.9 in adult 05/05/2020 Assessment & Plan (08/07/2020 11:01 AM CAR DISPATCHER): BMI 32.71. Discussed with pt low fat low na+ diet and increasing physical activity with a goal of 20 -30 min of aerobic exercise 3-4 days per week. Pt encouraged to lose 1-2 lbs weekly. Verbalized understanding. Assessment & Plan (05/05/2020 3:25 PM CAR DISPATCHER): BMI 33.21. Discussed with pt low fat [...] 06/15/2018 Assessment & Plan (06/15/2018 12:03 PM CAR DISPATCHER): Mild degenerative changes of the cervical spine no evidence of disc herniation. Muscle strain of the cervical spine Continued observation Lumbar degenerative disc disease 04/30/2018 Assessment & Plan (06/15/2018 12:04 PM CAR DISPATCHER): L4-5 and L5-S1 annular tears and degenerative disc disease Recommended treatment is a left L5-S1 transforaminal epidural steroid injection and then follow-up with the office. Assessment & Plan (04/30/2018 2:55 PM CAR DISPATCHER): Recommended treatment is an MRI of the lumbar spine without contrast and follow up to review the scan in the office. Degenerative disc disease, cervical 04/30/2018 Assessment & Plan (04/30/2018 2:57 PM CAR DISPATCHER): Recommended treatment is an MRI of the [...] Free 06/11/2008 Tdap 06/10/2019, 9,02/12/2017,06/09 Varicella 05/05/2020 Surgical History Surgery Date Site/Laterality Comments CARPAL TUNNEL RELEASE SECTION 06/22/2019 Medical History Medical History Date Comments Prediabetes 2018 PCOS (polycystic ovarian syndrome) 2017 History of recurrent miscarriages Arthritis 2017 Pulmonary embolism (HCC) 2015 Depression Anxiety disorder Asthma Degenerative disc disease, lumbar 2017yr Gestational diabetes Normal stillborn Graves disease Hypothyroid Family History Medical History Relation Name Comments Diabetes Father's Brother Heart disease Maternal Grandmother Myocarditis Mother Relation Name Status Comments Father Other Father's Brother Alive Maternal Grandmother Mother Social History Tobacco Use Types Packs/Day [...] on file Legal Sex Female 4:14 AM CAR DISPATCHER Gender Identity Not on file Sexual Orientation Bisexual 05/04/2020 11 :37 AM CAR DISPATCHER Obstetrics History Para Term AB IAB SAB Ectopic Multiple Livin g Live Births 3 1 1 1 1 Date Outcome GA Total Labor Labor/2nd/3rd Weight Sex Type Anes PTL Christina A1 A5 Name Clin 2017 Vag-S pont Demise 2017 SAB Last Filed Vital Signs Vital Sign Reading Time Taken Comments Blood Pressure 126/78 08/06/2024 5:35 AM CAR DISPATCHER Pulse 56 08/06/2024 5:35 AM CAR DISPATCHER Temperature 37.1 C (98.7 F) 08/06/2024 2:25 AM CAR DISPATCHER Respiratory Rate 16 08/06/2024 5:35 AM CAR DISPATCHER Oxygen Saturation 97% 08/06/2024 5:35 AM CAR DISPATCHER Inhaled Oxygen Concentration - - Weight 99.8 kg (220 lb) 08/06/2024 2:25 AM CAR DISPATCHER Height 175.3 cm (5' 9) 08/06/2024 2:25 AM CAR DISPATCHER Body Mass Index 32.49 08/06/2024 2:25 AM CAR DISPATCHER Plan of Treatment Health Maintenance Due Date Last Done Comments Albumin Creatinine Ratio, Urine 1989 Cervical Cancer Screening 1989 Dilated Eye Exam 1989 Foot Exam 1989 Hepatitis B Screening 2007 Regular Well Visit/Exam 18-64 2007 HPV Vaccines (1 - 3-dose SCD M series) 2016 Pneumococcal vaccine <65 (2 of 2 - PCV) 01/30/2017 01/31/2016, 03/17/2010, 02/03/2010 Varicella Vaccines (2 of 2 - 13+ 2-dose series) 06/02/2020 05/05/2020 Depression Screening 05/05/2021 05/05/2020 Lipid Panel 05/05/2021 05/05/2020 eGFR 08/28/2021 08/28/2020, 1206/2019, 05/31/2019, Additional history exists Hemoglobin A1C 07/30/2022 01/27/2022, 12/0 06/2019, 05/13/2019, Additional history exists Influenza Vaccine (#1) 2025 4, 02/23/2022, 06/09/2021, Additional history exists DTaP/Tdap/Td Vaccine (6 - Td or Tdap) 04/19/2032 04/19/2022, 06/10/2019, 04/26/2019, Additional history exists Hepatitis C Screening Completed 03/09/2016 Procedures Procedure Name Priority Date/Time Associated Diagnosis Comments EGFR STAT 08/28/2020 9:47 PM CDT HEMOGLOBIN A1C Routine 05/05/2020 12:06 PM CAR DISPATCHER History of gestational diabetes LIPID PANEL Routine 05/05/2020 12:06 PM CAR DISPATCHER History of gestational diabetes SERUM HEPATITIS C AB Routine 03/09/2016 8:58 AM CDT from Last 3 Months or Most Recently Relevant to Health Maintenance Results * eGFR (08/28/2020 9:47 PM CDT) eGFR 118 mL/min/1.7 3 m2 MYNOR DOCKERY (DODGE) Comment: Interpretive Data Reference Interval Normal >/= [...] MD LAB BLOOD ORDERABLES Final R esult MANJITBRIELLE SARKIS (DODGE) 1 [facility] Department of Laboratories [place], [place] [id number] * (ABNORMAL) Hemoglobin A1c (05/05/2020 12:06 PM CAR DISPATCHER) Hgb A1C 5.7(H) 4.0 - 5.6 % MYNOR Estimated Average Glucose 117 mg/dL MYNOR ROSSI Comment: The ADA recommends reporting an estimated Average Glucose (eAG) with all Hemoglobin A1c results using the equation derived from a study of 507 normal and diabetic adults. Minority populations were underrepresented and children were not included. (Diabetes Care 31:0821-3883, 2008). The eAG is not equivalent to a fasting glucose. Blood specimen (specimen) 05/05/2020 12:06 PM CAR DISPATCHER 05/05/2020 8:33 PM CAR DISPATCHER us Negrita Lyon NP LAB BLOOD ORDERABLES Final Result MYNOR ROSSI [address] Department [place] [address] * Lipid panel (05/05/2020 12:06 PM CAR DISPATCHER) Cholesterol 171 30 - 199 mg/dL MYNOR [...] revised on 2018. Chol/HDL ratio 4 MYNOR ROSSI Blood specimen (specimen) 05/05/2020 12:06 PM CAR DISPATCHER 05/05/2020 8:33 PM CAR DISPATCHER Narrative MYNOR ROSSI - 05/05/2020 9:01 PM CAR DISPATCHER Has the patient been fasting for 8 hours or more?->Yes us Negrita Lyon NP LAB BLOOD ORDERABLES Final Result MYNOR ROSSI [address] Department [place] [address] * Serum Hepatitis C ab (03/09/2016 [...] RNA Detection and Quantitation by Real-Time Reverse Interior Block Wirer-PCR (RT-PCR). Current interpretive data was last revised on 2015. Kenneth Diaz MD LAB BLOOD ORDERABLES Final Resu lt CDR HISTORICAL RESULTS from Last 3 Months or Most Recently Relevant to Health Maintenance Insurance [address] [id number] [facility]/PPO Address: [id number] [place] [address] [place] [facility] ACCESS CHOICE [facility] CHOICE [facility]/PPO Address: [address] [address] [place] [address] [employer] IDPA Care Teams Artillery Meteorological Man Relationship Specialty Start Date End Date Nathan Lerner MD PCP - General 08/28/20
--- OUTSIDE RECORDS SUMMARY | 2024-12-31 19:45 | XMS_ITS | Clinical Summary ---
Author Organization [facility] Address [address] [place] [address] Phone Care Team Providers Care Tipple Tender Name Role Phone Olivia Valentin DO Primary Care Provider Josephine vailable Allergies Active Allergy Reactions Criticality Noted Date Comments Amoxicillin-Pot Clavulanate Nausea 04/15/20 18 Prochlorperazine Anxiety 04/15/2018 Naproxen Nausea 04/16/2018 Metoclopramide Hcl Anxiety 04/15/2018 Medications Levothyroxine Sodium (SYNTHROID PO) Take by mouth. Active METFORMIN HCL PO Take by mouth. Active Fluticasone-Umec lidin-Vilant (TRELEGY ELLIPTA IN) take by inhalation. Active ALBUTEROL IN take by inhalation. Active TRAMADOL HCL PO Take by mouth. Active NORGESTREL PO Take by mouth. A ctive zolpidem (AMBIEN) 10 MG Tablet Take by mouth. 7 Active ondansetron (ZOFRAN-ODT) 4 MG TABLET DISPERSIBLE Take 1 Tab by mouth every 8 hours as needed for Nausea - 1st line. 10 Tab 9 Active Additional Information Patient not taking.Reported on 02/17/2021 azithromycin (ZITHROMAX) 250 MG Tablet 2 tab(s) daily for 1 day, then 1 tab(s) daily for days 2-5. 6 Tab 0 Active Additional Information Patient not taking.Reported on 02/17/2021 Active Problems No known active problems Social History Tobacco Use Types Packs/Day Years Used Date Smoking Tobacco: Every Day Cigarettes Smokeless Tobacco: Never Alcohol Use Standard Drinks/Week Comments No 0 (1 standard drink = 0.6 oz pur e alcohol) Comments No Sex and Gender Information Value Date Recorded Sex Assigned at Not on file Legal Sex Female 5:48 PM GOLF COURSE PATROLLER Gender Identity Not on file Sexual Orientation Not on file Last Filed Vital Signs Vital Sign Reading Time Taken Comments Blood Pressure 139/90 10/04/2021 12:03 AM CDT Pulse 59 10/04/2021 12:03 AM CDT Temperature 36.1 C (96.9 F) 10/03/2021 8:33 PM CDT Respiratory Rate 16 10/04/2021 12:03 AM CDT Oxygen Saturation 100% 10/04/2021 12:03 AM CDT Inhaled Oxygen Concentration - - Weight 86.2 kg (190 lb) 10/03/2021 8:33 PM CDT Height 170.2 cm (5' 7) 10/03/2021 8:33 PM CDT Body Mass Index 29.76 10/03/2021 8:33 PM CDT Plan of Treatment Health Maintenance Due Date Last Done Comments Hepatitis C Virus (HCV) Screening 1989 Human Papillomavirus (HPV) Immunization (1 - 3-dose series) 2004 Hepatitis B Immunization (1 of 3 - 19+ 3-dose series) 2008 HPV/Cotest 2019 Cervical Cancer Screening (CCS) 03/16/2023 Pap Smear 03/16/2023 03/16/2020 SARS-COV-2 Immunization ( season) 2024 Influenza Immunization (#1) 2025 01/0 10/2021, 03/02/2020, 02/26/2020, Additional history exists Respiratory Syncytial Virus (RSV) Immunization (Adult) (1 - 1-dose 75+ series) 2064 Pneumococcal Immunization Combined Aged Out 01/31/2016, 03/17/2010, 02/03/2010 No longer eligible based on patient's age to complete this topic DTaP/Tdap/Td Immunization Discontinued 2019, 04/26/2019, 02/12/2017, Additional history exists TdaP Immunization Completed 06/10/2019, , 02/12/2017, Additional history exists Meningococcal Immunization (ACWY) Aged Out No longer eligible based on patient's age to complete this topic Rotavirus Immunization Aged Out No lo nger eligible based on patient's age to complete this topic Insurance [facility] MEDICAID [place] [facility] Care Teams Tipple Tender Relationship Specialty Start Date End Date Olivia Valentin DO PCP - General Family Medicine 10/03/21
--- OUTSIDE RECORDS SUMMARY | 2024-12-31 19:45 | XMS_ITS | Clinical Summary ---
Author Organization [facility] Address [address] [facility] [place] [address] Care Team Providers Care Socket Puller Name Role Phone Moni Mello MD Primary Care Provider [phone] Source Comments [facility],non-owned Affiliates and Associated Physician Practices is amultiple site organization consisting of ambulatory clinics and hospital sitesin [place], [place], [place] and [place]. This disclosure is being madepursuant to the Care Everywhere program and may not contain all information available regarding this patient. Last updated 18.[facility] Allergies Active Allergy Reactions Criticality Noted Date Comments Augmentin Nausea and/or Vomiting Medium 08/28/2017 Banana Itching 06/20/2019 Prochlorperazine Psychiatric Medium 02/26/2017 Panic attack Latex Itching Medium 06/20/2019 Naproxen Nausea and/or Vomiting Medium 06/01/2014 Metoclopramide Psychiatric Medium 02/26/2017 Panic attack Medications * This document contains information received from the source organization and may not represent a complete record from that organization. * Be aware that medications may not be up to date on this document. Alwaysverify current medications with the patient. levothyroxine (SYNTHROID) 200 MCG tablet Take 200 mcg by mouth daily before breakfast Active budesonide-for moterol (SYMBICORT) 160-4.5 MCG/ACT inhaler Inhale 2 puffs by mouth 2 times daily 1 Inhaler 9 Active Additional Information Patient not taking.Reported on 06/20/2019 Vit-Fe Fumarate-FA ( VITAMIN PO) Take 1 tablet by mouth once daily Active famotidine (PEPCID) 20 MG tablet Take 1 tablet by mouth 2 times daily 30 tablet 2 9 Active metFORMIN (GLUCOPHAGE) 500 MG tablet Take 1 tablet by mouth 2 times daily with morning and evening meal 60 tablet 4 9 Active heparin 31582 UNIT/ML injection Inject 10,000 Units subcutaneously 2 times daily Active Vitamin D3, cholecalcifero l, 50 MCG (2000 UT) tablet Take 2,000 Units by mouth once daily Active calcium carbonate (TUMS) 500 MG chew tablet Take 2 tablets by mouth 3 times daily as needed for Heartburn Active albuterol HFA (PROAIR HFA) 108 (90 Base) MCG/ACT inhaler Inhale 2 puffs by mouth every 6 hours as needed for Shortness of Breath 1 Inhaler 2 0 Active buPROPion SR 12hr (WELLBUTRIN-SR ) 150 MG tabletIndicati ons:Major Depressive Disorder Take 150 mg by mouth once daily Pt reports using this medicine 100mg in the morning and 50mg in the afternoon. Reasons: Major Depressive Disorder Active oxyCODONE-acet aminophen (PERCOCET) 5-325 MG tablet Take 1 tablet by mouth every 4 hours as needed for Pain 20 tablet 0 Active docusate sodium (COLACE) 100 MG capsule Take 1 capsule by mouth 2 times daily 60 capsule 2 0 Active ferrous sulfate 325 (65 FE) MG tablet Take 1 tablet by mouth once daily 100 tablet 0 Active Iivmovby-Hwh-M e-FA ( VITAMINS) 0.8 MG TABS Take 1 tablet by mouth once daily 90 tablet 1 0 Active Active Problems Problem Noted Date Diagnosed Date Encounter for induction of labor 06/20/2019 Threatened labor 06/18/2019 Nausea and vomiting during 05/31/2019 Leukocytosis 02/26/2017 RLQ abdominal pain 02/26/2017 Severe episode of recurrent major depressive disorder, without psychotic features 02/26/2017 Suicidal thoughts 02/26/2017 Asthma 06/10/2010 Graves' disease 06/10/2010 Bipolar I disorder, most rec ent episode (or current) depressed, severe, without mention of psychotic behavior 06/09/2010 Overview (03/05/2017): IMO Update 03/05/2017 Borderline personality disorder 06/09/2010 Opioid dependence 06/09/2010 Nondependent amphetamine or related acting sympathomimetic abuse 06/09/2010 Overview (03/05/2015): Chest pain 03/15/2010 Class 1 obesity due to exces s calories without serious comorbidity with body mass index (BMI) of 30.0 to 30.9 in adult Type 2 diabetes mellitus aff ecting in third trimester, antepartum Evaluate anatomy not seen on prior sonogram Polyhydramnios, antepartum complication History of maternal pulmonary embolus Obesity affecting in third trimester H/O intrauterine , currently , third trimester 35 weeks gestation of Encounter for ultrasound to assess interval grow th of fetus 37 weeks gestation of Immunizations Immunization Administration Dates Next Due INFLUENZA VACCINE 04/05/2019,03/17/2010 MMR 06/24/2019(Deferred: See Comment s - immiune) PNEUMOCOCCAL PPSV23 03/17/2010 TDAP (7yrs+) 06/24/2019(Deferred: See Comments - received),06/10/2019,06/09/2015 Family History Medical History Relation Name Comments Depression Brother Alcohol abuse Father Bipolar Disorder Father Depression Father Drug Abuse Father Schizophrenia Father Alcohol abuse Maternal Aunt Asthma Maternal Aunt Depression Maternal Aunt Drug Abuse Maternal Aunt Hypertension Maternal Aunt Alcohol abuse Mother Arthritis - Rheumatoid Mother Depression Mother Drug Abuse Mother Hypertension Mother Migraine Mother Alcohol abuse Sister Depression Sister Relation Name Status Comments Brother Alive Father Alive Maternal Aunt Alive Mother Alive Sister Alive Social History Tobacco Use Types Packs/Day Years Used Date Smoking Tobacco: Every Day Cigarettes 0.5 15 Smokeless Tobacco: Never Tobacco Cessation:Ready to Q uit: No; Counseling Given: Yes Alcohol Use Standard Drinks/Week Comments Not Currently 0 (1 standard drink = 0.6 oz pur e alcohol) occ Comments No Sex and Gender Information Value Date Recorded Sex Assigned at Not on file Legal Sex Female 9:26 AM DICTAPHONE OPERATOR Gender Identity Not on file Sexual Orientation Not on file Last Filed Vital Signs Vital Sign Reading Time Taken Comments Blood Pressure 134/72 06/28/2019 1:30 PM DICTAPHONE OPERATOR Pulse 79 06/28/2019 1:30 PM DICTAPHONE OPERATOR Temperature 36.8 C (98.2 F) 06/28/2019 1:30 PM DICTAPHONE OPERATOR Respiratory Rate 18 06/28/2019 1:30 PM DICTAPHONE OPERATOR Oxygen Saturation 99% 06/28/2019 1:30 PM DICTAPHONE OPERATOR Inhaled Oxygen Concentration - - Weight 101.5 kg (223 lb 12.8 oz) 2019 12:10 AM DICTAPHONE OPERATOR Height 175.3 cm (5' 9) 06/21/2019 12:1 0 AM DICTAPHONE OPERATOR Body Mass Index 33.05 06/21/2019 12:10 AM DICTAPHONE OPERATOR Plan of Treatment Health Maintenance Due Date Last Done Comments HIV SCREENING 2004 HEPATITIS B VACCINE (1 of 3 - 19+ 3-dose series) 2008 PNEUMOCOCCAL VACCINE (2 of 2 - PCV) 03/17/2011 03/17/2010 HPV VACCINE (1 - 3-dose SCDM series) 2016 COVID-19 VACCINE (1 - season) 2024 INFLUENZA VACCINE (#1) 2025 9, 02/09/2017, 05/15/2013, Additional history exists DTAP/TDAP/TD VACCINES (3 - Td or Tdap) 06/10/2029 06/10/2019, 06/09/2015 ZOSTER VACCINE (1 of 2) 2039 HEPATITIS C SCREENING Completed 01/30/2016 HIB VACCINE Aged Out No longer eligi ble based on patient's age to complete this topic MENINGOCOCCAL (Group B) VACCINE SHARED DECISION-MAKING Aged Out No longer eligible based on patient's age to complete this topic MENINGOCOCCAL GROUPS A/C/Y/W VACCINE Aged Out No longer eligible based on patient's age to complete this topic Procedures Procedure Name Priority Date/Time Associated Diagnosis Comments CULTURE STREP B Routine 06/12/2019 1:30 PM DICTAPHONE OPERATOR , unspecified gestational age from Last 3 Months or Most Recently Relevant to Health Maintenance Results * CULTURE STREP B (06/12/2019 1:30 PM DICTAPHONE OPERATOR) Culture Strep B Negative for beta-hemolytic Streptococcus Group B KRISH 06/15/2019 7:23 AM DICTAPHONE OPERATOR [facility] MICROBIOLOGY Microbiology MISCELLANEOUS SAMPLES / Unknown Collection / Unknown 06/12/2019 1:30 PM DICTAPHONE OPERATOR 06/12/2019 2:45 PM DICTAPHONE OPERATOR Ale Pennington MD LAB - MICROBIOLOGY ORDERABLES Final Result [facility] [address] [place] [address], [facility] [phone] from Last 3 Months or Most Recently Relevant to Health Maintenance Insurance [facility] Address: [facility] [address] [place] [address] [facility] MEDICAID Advance Directives Documents on File Type Date Recorded Patient Barrel Cooper Expl anation Adv Directive/Living Will/POA 06/15/2010 11:20 AM * Full Code (Latest Code Status on File) Date Activated Date Inactivated Comments 06/23/2019 1:34 AM 06/28/2019 4:22 PM * Full Code Date Activated Date Inactivated Comments 06/20/2019 10:06 PM 06/23/2019 1:34 AM * Full Code Date Activated Date Inactivated Comments 06/18/2019 9:04 PM 06/18/2019 10:50 PM * Full Code Date Activated Date Inactivated Comments 05/31/2019 11:54 AM 05/31/2019 5:04 PM * Full Code Date Activated Date Inactivated Comments 02/26/2017 8:00 PM 02/28/2017 4:37 PM Care Teams Socket Puller Relationship Specialty Start Date End Date Moni Mello MD [address] [place] [id number] [facility] - General 06/10/19
--- OUTSIDE RECORDS SUMMARY | 2024-12-31 19:49 | XMS_ITS | Continuity of Care Document ---
Author Organization [facility] Address [address] [place] [address] Phone Care Team Providers Care Washtub Worker Helper Name Role Phone Unavailable Unavailable Unavailable Medications Medication Instructions Dosage Effective Dates (start - stop) Status Comments levothyroxine 25 mcg tablet take 0.5 Tablet (12.5MCG) by oral route every other day, the opposite days take 1 tablet by oral route. - Active Total of 162.5mcg every other day and opposite days to take 175mcg . levothyroxine 150 mcg tablet take 1 tablet by oral route every day 150 MCG - Active Pt to take 162.5mcg every other day and 175mcg every other day. trazodone 150 mg tablet take 1 by Oral route every evening as needed for insomnia 1 - Active Zofran 4 mg tablet take 1 Tablet by oral route every 8 hours for 2 days as needed 4 MG - No Longer Active script rewrite Dr Ermelinda TIJERINA Bap Depo-Provera 150 mg/mL IM Syringe inject 1 milliliter by intramuscular route every 3 months 150 MG - No Longer Active Procedures Procedure Date INFLUENZA VACCINE, AGE 3YRS+ INJ MEDROXYPROGESTERONE ACETATE 013 OFFICE/OUTPATIENT VISIT, EST Limit oral eval problem focused 013 Periapical Radiographic, first Image Apr Extraction erupted tooth or exposed root OFFICE/OUTPATIENT VISIT, EST COLLECTION OF VENOUS BLOOD BY VENIPUNCTU RE INJ MEDROXYPROGESTERONE ACETATE 013 OFFICE/OUTPATIENT VISIT, EST OFFICE/OUTPATIENT VISIT, EST HUMAN PAPILLOMA VIRUS VACCINE QUADRIV 3 DOSE IM OFFICE/OUTPATIENT VISIT, EST OFFICE/OUTPATIENT VISIT, EST COLLECTION OF VENOUS BLOOD BY VENIPUNCTU RE REMOVAL, IMPLANTABLE CONTRACEPTIVE CAPSU LES OFFICE/OUTPATIENT VISIT, EST HUMAN PAPILLOMA VIRUS VACCINE QUADRIV 3 DOSE IM INJ MEDROXYPROGESTERONE ACETATE 013 OFFICE/OUTPATIENT VISIT, EST COLLECTION OF VENOUS BLOOD BY VENIPUNCTU RE COLLECTION OF VENOUS BLOOD BY VENIPUNCTU RE OFFICE/OUTPATIENT VISIT, EST HUMAN PAPILLOMA VIRUS VACCINE QUADRIV 3 DOSE IM INSERTION, NON-BIODEGRADABLE DRUG DELIVE RY IMPLANT IMPLANON (ETONOGESTREL (CONTRACEPTIVE) I MPLANT SYSTEM,) 1ST COMPRE PREV MED E/M NEW PT 18-39 May SMEAR, WET MOUNT, SALINE/INK OFFICE/OUTPATIENT VISIT, EST OFFICE/OUTPATIENT VISIT, EST COLLECTION OF VENOUS BLOOD BY VENIPUNCTU RE OFFICE/OUTPATIENT VISIT, EST OFFICE/OUTPATIENT VISIT, NEW Advance Directives Directive Yes / No Effective Date File Name No Information Encounters Encounter Description Practice Location Reason(s) For Visit Diagnoses Date Provider Providers Copied on Encounter [facility], [address], [place], [place], [address] , [place] tel:[phone] [facility] No Information 4 No Information [facility], [address], [place], [place], [address] , [place] tel: [phone] [facility] No Information 4 No Information OFFICE/OUTPA TIENT VISIT, EST [facility], [address], [place], [place], [address] , [place] tel: [phone] [facility] depo (chief complaint) Surveillance of other contraceptive methodInfluen za Vaccine 3 No Information [facility], [address], [place], [place], [address] , [place] tel: [phone] [facility] Dental examination 3 No Information OFFICE/OUTPA TIENT VISIT, EST [facility], [address], [place], [place], [address] , [place] tel: [phone] [facility] hypothyroidis m (chief complaint)ins omnia (chief complaint) Other specified acquired hypothyroidis mRoutine Medical ExamInsomniaS moker 3 No Information OFFICE/OUTPA TIENT VISIT, EST [facility], [address], [place], [place], [address] , [place] tel: [phone] [facility] depo (chief complaint)abn ormal bleeding (chief complaint) Surveillance of other contraceptive method 3 No Information OFFICE/OUTPA TIENT VISIT, EST [facility], [address], [place], [place], [address] , [place] tel: [phone] [facility] suture removal (chief complaint) Visit for suture removal 3 No Information OFFICE/OUTPA TIENT VISIT, EST [facility], [address], [place], [place], [address] , [place] tel: [phone] [facility] gardisil (chief complaint) Need for prophylactic vaccination and inoculation, other viral diseases 3 No Information OFFICE/OUTPA TIENT VISIT, EST [facility], [address], [place], [place], [address] , [place] tel: [phone] [facility] hypothyroidis m (chief complaint)lencho n (chief complaint)abd ominal discomfort (chief complaint) Other specified acquired hypothyroidis mAbdominal pain, unspecified siteJoint pain 3 No Information OFFICE/OUTPA TIENT VISIT, EST [facility], [address], [place], [place], [address] , [place] tel: [phone] [facility] gardisil (chief complaint)pt wants implanon removed (chief complaint) Surveillance of implantable subdermal contraceptive Surveillance of other contraceptive methodNeed for prophylactic vaccination and inoculation, other viral diseases 3 No Information OFFICE/OUTPA TIENT VISIT, EST [facility], [address], [place], [place], [address] , [place] tel: [phone] [facility] hypothyroidis m (chief complaint)anx iety (chief complaint)boi l (chief complaint) Other specified acquired hypothyroidis mAbdominal pain, unspecified siteAbscess of skin 3 No Information OFFICE/OUTPA TIENT VISIT, EST [facility], [address], [place], [place], [address] , [place] tel: [phone] [facility] hypothyroidis m (chief complaint)anx iety (chief complaint)abd ominal discomfort (chief complaint) Other specified acquired hypothyroidis mAcute right flank painOther acute painSmoker 3 No Information 1ST COMPRE PREV MED E/M NEW PT 18-39 [facility], [address], [place], [place], [address] , [place] tel: [phone] [facility] annual visit (chief complaint)vag inal discharge (chief complaint) Routine gynecological examinationLe ukorrhea, not specified as infectiveInse rtion of implantable subdermal contraceptive Need for prophylactic vaccination and inoculation, other viral diseases 2 No Information OFFICE/OUTPA TIENT VISIT, EST [facility], [address], [place], [place], [address] , [place] tel: [phone] [facility] hypothyroidis m (chief complaint)R eye pain (chief complaint)R posterior flank pain (chief complaint) Other specified acquired hypothyroidis mPain, eye, rightRight flank pain 2 No Information OFFICE/OUTPA TIENT VISIT, EST [facility], [address], [place], [place], [address] , [place] tel: [phone] [facility] hypothyroidis m (chief complaint)col d symptoms (chief complaint) Other specified acquired hypothyroidis mAcute bronchitisRou jin general medical examination at a health care facility 2 No Information OFFICE/OUTPA TIENT VISIT, [facility], [address], [place], [place], [address] , [place] tel: [phone] [facility] Cellulitis and abscess of other specified sitesOther specified acquired hypothyroidis m 2 No Information OFFICE/OUTPA TIENT VISIT, NEW [facility], [address], [place], [place], [address] , [place] tel: [phone] [facility] medication rewrite from hospital (chief complaint) HeadacheAsthm a,unspecified type, unspecifiedUn specified acquired hypothyroidis m 2 No Information Family History Family Member Type Diagnosis Age At Onset Problem (finding) No family history of Ca ncer, breast Problem (finding) No family history of Ca ncer, colon Problem (finding) No family history of [place] cancer Immunizations Vaccine Date Status Comments Flu (split) (3 yrs or older) administered Source: New Immunization Record HPV administered Source: New Imm unization Record HPV administered Source: New Imm unization Record HPV administered Source: New Imm unization Record Payers Payer name Insurance type Covered alliance party ID Authoriza tion(s) No Information Social History Type Description Quantity Date Captured Comments Sex Female Smoking Status No Information Chief Complaint And Reason For Visit No Information Reason For Referral Reason For Referral No Information Plan Of Treatment Date Type Action Status Goal Hemoglobin A1C. Due on due Goal AST. Due on due Goal ALT. Due on due Goal Lipid Panel. Due on 013 due Goal Urinalysis. Due on 13 due Goal Breast exam. Due on 012 due Goal PAP. Due on due Goal TSH. Due on due Goal H&P. Due on due Goal BMP fasting. Due on 013 due Goal HPV (3rd). Due on 3 due Goal HPV (2nd). Due on 3 due Goal HPV (1st). Due on 2 due Referral Referred To: [address], [phone] Ordered: Referral: [facility]. Radiology. Evaluate and treat. Appointment date/timeframe: 07/26/2012 ordered Future Order: Lab Order Wet Prep (Wet Prep), Appointment on: Ordered Future Order: Lab Order CULTURE, URINE, ROUTINE ([id number]), Appointment on: , Sent on: Sent Future Order: Lab Order URINALYS IS, MICROSCOPIC ([id number]), Appointment on: , Sent on: Sent Future Order: Lab Order T4, FREE ([id number]), Appointment on: , Sent on: Sent Future Order: Lab Order TSH, 3RD GENERATION ([id number]), Appointment on: , Sent on: Sent Future Order: Lab Order URINALYS IS, MICROSCOPIC ([id number]), Appointment on: , Sent on: Sent Future Order: Lab Order CHLAMYDI A/N. GONORRHOEAE DNA, SDA ([id number]), Appointment on: , Sent on: Sent Future Order: Lab Order HEPATITI S A AB, TOTAL W/REFL IGM ([id number]), Appointment on: , Sent on: Sent Future Order: Lab Order HEPATITI S B CORE AB TOTAL W/REFL IGM ([id number]), Appointment on: , Sent on: Sent Future Order: Lab Order HEPATITI S B SURFACE ANTIBODY (QUANT) ([id number]), Appointment on: , Sent on: Sent Future Order: Lab Order HEPATITI S B SURFACE ANTIBODY QL ([id number]), Appointment on: , Sent on: Sent Future Order: Lab Order HEPATITI S B SURFACE ANTIGEN W/ CONFIRMATION (498), Appointment on: , Sent on: Sent Future Order: Lab Order HEPATITI S C ANTIBODY ([id number]), Appointment on: , Sent on: Sent Future Order: Lab Order HIV AB, HIV 1/2, EIA, WITH REFLEXES ([id number]), Appointment on: , Sent on: Sent Future Order: Lab Order RPR (DX) W/REFL TITER AND CONFIRMATORY TESTING ([id number]), Appointment on: , Sent on: Sent History Of Present Illness Encounter Date Complaint History Of Prese nt Illness No Information Functional Status Date Functional Assessmen t No Information Instructions Date Instruction Additional Infor mation Reviewed medications Patient understood and made info rmed decision Change medication Continue current medication Reviewed medications Continue current medication Patient understood and made info rmed decision Reviewed medications Continue current medication Change medication Patient understood and made info rmed decision Patient understood and made info rmed decision Continue current medication Reviewed medications Reviewed medications Continue current medication Patient understood and made info rmed decision Reviewed medications Patient understood and made info rmed decision Continue current medication Activity as tolerated Continue current medication Assessments Type Assessment Date No Information Patient Care Teams Name Effective Dates (start - stop) Status Members No Information
--- OUTSIDE RECORDS SUMMARY | 2024-12-31 19:49 | XMS_ITS | Continuity of Care Document ---
Author Organization [facility] Address [address] [place] [address] Phone Care Team Providers Care Site Worker Name Role Phone Chris RAYMUNDO, Apurva Unavailable Unavailable Allergies, Adverse Reactions, Alerts Substance Reaction Status Criticality naproxen Active No Information METOCLOPRAMIDE HCL Active No Inform ation PROCHLORPERAZINE MALEATE Active No Information PROCHLORPERAZINE EDISYLATE Active N o Information prochlorperazine Active No Informat ion POTASSIUM CLAVULANATE Active No Inf ormation AMOXICILLIN TRIHYDRATE Active No In formation Medications Medication Instructions Dosage Effective Dates (start - stop) Status Comments Prenaissance 29 mg-1.25 mg-55 mg-325 mg capsule take 1 capsule by oral route every day - Active Please substitut e $4 list vitamins Procedures Procedure Date OB US < 14 Weeks, Single Fetus 18 URINE TEST, BY VISUAL COLOR CO MPARISON METHODS OB US, Transvaginal MENTAL HEALTH ASSESSMENT, BY NON-PHYSICI AN care, at-risk assessment care, at-risk enhanced service; antepartum management URINE TEST, BY VISUAL COLOR CO MPARISON METHODS Results Test Name Date and Time Measure Units Reference Range Abnormal Flag Status Comments Panel Description: Choriogon adotropin.beta subunit ( test) [Presence] in Urine Final - Urine 8 11:03:06 Negative Negative Final Panel Description: OB US < 14 Weeks, Single Fetu s Final Document OB US < 14 Weeks, Single Fetus 1 [{Url}] <Url iRemMajorVers ion=1.3 iRemMinorVers ion=5.8 seq_no=[id number] 7abad template_name =PacsEx><><![CDATA[h [email or web address] IntegrationPr [email or web address]? CMD=OPENSTUDY &ACCESSION=[place] [id number]]]></ Path></Url> Final Advance Directives Directive Yes / No Effective Date File Name No Information Encounters Encounter Description Practice Location Reason(s) For Visit Diagnoses Date Provider Providers Copied on Encounter [facility] , [address], [place], [place], [address], tel:[phone] [facility] Encounter for test, result unknown Chris Mixon. [address], [place], [place], [address], . tel:[phone] Referring Provider: Apurva Perez, [address], [place], [address] . tel:[phone] [facility] , [address], [place], [place], [address], tel:[phone] [email or web address] routine (chief complaint) Encntr for suprvsn of normal first preg, first trimesterLess than 8 weeks gestation of [facility]. [address], [place], [place], [address], . tel:[phone] Referring Provider: Ham Garcia, [address], [place], [address] . tel:[phone] [facility] , [address], [place], [place], [address], tel:[phone] [facility] Encounter for test, result unknown Ezra Mims. [address], [place], [place], [address], . tel:[phone] Family History Family Member Type Diagnosis Age At Onset No Information Payers Payer name Insurance type Covered democrat ID Authoriza tion(s) Medicaid - Medical [id number] Social History Type Description Quantity Date Captured Comments Alcohol Use Details Unknown Caffeine Use Details Unknown Tobacco Use Status Smoking Status No Information Sex Female Chief Complaint And Reason For Visit No Information Reason For Referral Reason For Referral No Information History Of Present Illness Encounter Date Complaint History Of Prese nt Illness routine [facility] 27 [facility] (SABx1) at EGA of 7 09/09 , with MAYA of 06/30/2018, based on LMP of 09/23/2017. RF#7-Previous (20 weeks gestation or later). Patient had a stillborn at 8 months due to cord wrapped around babys neck. Patient reported some anxiety, presenting long before . Was taking 1mg ativan 3x/day, but ceased taking it 1 year ago. Anxiety still ongoing, and patient is self managing. Patient lives with her and stepdaughter-age 4. Patient had a light amount of spotting a couple of weeks ago that was dark red. None since. Patient also taking synthroid for hypothyroid, uses an inhaler for asthma (needs refilling), and metformin for PCOS (polycystic ovary syndrome). Patient FOB involved. Client denies significant medical hx. Referred to outreach and WIC. Encouraged patient to make an appointment with dental.See EHR and scanned documents for more information. class teaching reviewed as follows: anticipated course of care to increase chances of a healthy and good delivery outcomes, limitations in use of over the counter medications, hospital facilities, avoid drug, alcohol, tobacco use in and risk their use poses to fetus, exercising/physical activity in , dietary recommendations: increase fiber intake, food safety (wash fruits and vegetables, avoid raw meat, raw fish, undercooked eggs, and unpasteurized dairy), recommendations for 8-10 glasses of healthy fluids daily, nutrition and weight gain in , vitamins/iron daily, risk factors identified by history, s/s of miscarriage, seat belt use, physical activity, breast feeding, and PP family planning options. Pt v/u, denies questions. Merry Wade RN. Functional Status Date Functional Assessmen t No Information Instructions Date Instruction Additional Infor mation No Information Assessments Type Assessment Date No Information Patient Care Teams Name Effective Dates (start - stop) Status Members No Information
[2024-12-31 19:52] VITALS: BP 137/82; PULSE 72; RESP 20; TEMP 36.8; O2SAT 100
--- NOTE | 2024-12-31 19:54 | ED.FEMALEGU ---
HPI - Female Genitourinary General Chief complaint: Urogenital-Female Stated complaint: blood in urine Time Seen by Provider: 12/31/24 19:54 Source: patient, RN notes reviewed and old records reviewed Mode of arrival: ambulatory Limitations: no limitations History of Present Illness HPI Narrative: 34-year-old female presents to the [facility] with right flank pain and blood in her urine for 10 days. Reports clots intermittently over the last 10 days Last menstrual cycle 6 weeks ago Onset (ago): day(s) (10) Related Data Home Medications ?Medication ?Instructions ?Recorded ?Confirmed ?Last Taken ?Type albuterol 90 mcg-budesonide 80 inh inhalation 12/31/24 Unknown History mcg/actuation HFA aerosol inhaler (Airsupra) celecoxib 200 mg capsule mg 12/31/24 Unknown History dextroamphetamine-amphetamine ER PO 12/31/24 Unknown History 30 mg 24hr capsule,extend release fluticasone fur. 200 mcg-umeclid inhalation 12/31/24 Unknown History 62.5 mcg-vilant 25 mcg inhalat.powder (Trelegy Ellipta) levothyroxine 300 mcg tablet mcg 12/31/24 Unknown History Allergies Allergy/AdvReac Type Severity Reaction Status Date / Time amoxicillin (From Augmentin) Allergy Intermediate gi upset Verified 12/31/24 19:54 clavulanic acid (From Allergy Intermediate gi upset Verified 12/31/24 19:54 Augmentin) Review of Systems Review of Systems: All systems reviewed & are unremarkable except as noted in HPI and below Constitutional: Constitutional: Reports no additional constitutional complaints ENT: Reports system reviewed and no additional complaints, except as documented Cardiovascular: Cardiovascular: Reports no additional cardiovascular complaints, Denies chest pain and Denies dyspnea Respiratory: Respiratory: Reports no additional respiratory complaints, Denies chest congestion, Denies cough and Denies dyspnea Musculoskeletal: Musculoskeletal: Reports no additional musculoskeletal complaints Integumentary/Breasts: Skin/Breast: Reports system reviewed and no additional complaints, except as docu PMFSH Comments At the time of my signature, I reviewed and agree with the nursing past medical, surgical, social, and family history. There is no relevant family history pertinent to the patient complaint. Exam Const: General: cooperative, healthy appearing, comfortable, no acute distress, well developed, alert and well nourished Nutritional Appearance: well nourished Orientation/consciousness: patient oriented x3 Limitations: no limitations HENMT: Head: normal to inspection Mouth: Yes Normal oral and palatal mucosa present, Yes lip normal, Yes tongue normal and Yes moist mucous membranes Eyes: General: appearance normal, both eyes and all related structures Alignment and Position: alignment normal Neck: Neck: normal visual inspection, full ROM, no lymphadenopathy and no meningeal signs Chest: Chest palpation & inspection: normal inspection of the chest Resp: Effort & Inspection: normal respiratory effort and able to speak in complete sentences Auscultation: clear to auscultation bilaterally, no crackles, no rales, no rhonchi and no wheezes Cardio: Rate: regular rate GI: GI Palp: No abdominal tenderness : General: Yes no CVA tenderness Skin: General skin exam: normal color and no rashes or lesions noted Neuro: General: patient oriented x3, gait normal, moves all extremities and no meningeal signs Cognition (Neuro): normal cognition Speech: normal speech Gait exam (Neuro): Normal gait present Extrem: General: normal to inspection, full ROM, capillary refill normal and normal gait Psych: Appearance: grossly normal and well kempt Mental Status: mental status grossly normal Speech and movement: Normal speech and movement present and Clear speech present Affect: normal affect Attitude: cooperative Course Course Level of Care: Express Care Visit Vital Signs Vital signs: Vital Signs Temperature 98.2 F 12/31/24 19:52 Pulse Rate 72 12/31/24 19:52 Respiratory Rate 12/31/24 19:52 Blood Pressure 137/82 12/31/24 19:52 Pulse Oximetry 100 12/31/24 19:52 Oxygen Delivery Room Air 12/31/24 19:52 Temperature 98.2 F 12/31/24 19:52 Pulse Rate 72 12/31/24 19:52 Respiratory Rate 12/31/24 19:52 Blood Pressure 137/82 12/31/24 19:52 Pulse Oximetry 100 12/31/24 19:52 Oxygen Delivery Room Air 12/31/24 19:52 Reviewed MDM - Female Genitourinary MDM Narrative Medical decision making narrative: Patient sitting in the exam room. Patient is nontoxic, vitals are stable. Patient presents for with approximately 10 day history of burning urination, blood intermittently in her urine. Urine dip shows probability of a UTI, positive leukocytes, positive nitrites, positive blood test urine is negative Culture signs Patient appropriate for outpatient treatment with strict signs and symptoms proceed to the emergency room Discharge instructions reviewed with patient, as well as provided in writing per nursing staff. The instructions also include specific and strict return/GO TO THE ER as well as f/u information. All questions have been answered, and the patient deny any further questions with discharge and discharge plan. Some parts of this dictation were generated by voice recognition software and may contain typographical and/or grammatical inaccuracies. Differential Diagnosis Differential diagnosis: Likely urinary tract infection, cystitis and other (Hello) Critical Care Time Critical Care Time Critical Care Time: No Discharge Plan Discharge Clinical Impression: Urine test negative Urinary tract infection Qualifiers: Urinary tract infection type: acute cystitis Hematuria presence: with hematuria Qualified Code(s): N30.01 - Acute cystitis with hematuria Patient Disposition: Home Condition: Stable Instructions: Antibiotic Form, Urinary Tract Infection in Women (DC) Additional Instructions: Increased water intake Take Tylenol as needed for pain Take antibiotic as prescribed Today your urine dip showed a probability of a UTI. You have been prescribed an antibiotic. Your urine will be sent to our lab for a culture. If at that time a bacteria grows that is not covered by the antibiotic prescribed you will be notified. Follow-up with primary care For new or worsening symptoms go directly to the emergency room Patient Language: [place] Prescriptions: New sulfamethoxazole-trimethoprim [Bactrim DS] 800-160 mg tablet 1 tablet PO Q12H Qty: 10 0RF No Action celecoxib 200 mg capsule levothyroxine 300 mcg tablet dextroamphetamine-amphetamine 30 mg capsule,extended release 24hr PO Trelegy Ellipta 200-62.5-25 mcg blister with device INHALATION Airsupra 90-80 mcg/actuation HFA aerosol inhaler INHALATION Follow-up/Referrals: PHYSICIAN,BOBBIN CLEANER [Primary Care Provider] - Stand Alone Forms: Work/School Release IP Time of Disposition: 20:05
[2024-12-31 20:03] LABS: EDUAAPPEAR Cloudy; EDUABILI Negative (Negative); EDUABLOOD 2+ (Negative); EDUACOLOR1 Yellow; EDUAGLUCOSE Negative (Negative); EDUAKETONE Negative (Negative); EDUALEUKO 1+ (Negative); EDUANITRATE Positive (Negative); EDUAPH 6.0; EDUAPROTEIN 2+ (Negative); EDUASPGRAVITY 1.030; EDUAUROBILI 0.2
[2024-12-31 20:08] LABS: BEDSIDEPREGUCG Negative (Negative)
== END 2024-12-31 20:13 | disposition home or self-care (01) ==
PROVIDERS: Emergency Provider Nurse Practitioner
DX: Z32.02 Encounter for pregnancy test, result negative (principal); N30.01 Acute cystitis with hematuria
CPT/HCPCS: 81003; 81025; 87086; 99203; G0463

== ENCOUNTER 2025-01-11 17:30 | Emergency (ER) | payer BC, SELFPAY ==
--- NOTE | 2025-01-11 17:31 | ED_ITS ---
HPI - Back Pain/Injury General Chief Complaint: Back Pain/Injury Stated Complaint: Back Pain Time Seen by Provider: 01/11/25 17:31 Source: patient Mode of arrival: ambulatory Limitations: no limitations History of Present Illness HPI Narrative: Wlila is a 34-year-old female patient presenting to the clinic today with complaints of back pain times 2-3 days. Denies any known injury. History degenerative disc disease in her low back. Was getting out of the chair and began having some pain in the low back shortly afterwards. She reports she was seen 2 weeks ago for UTI and placed on antibiotics and finished the antibiotics entirely. Went to the ER few days after finishing the antibiotics and have her urine rechecked and it was negative for any sign of infection. She denies any urinary symptoms or vaginal discharge. Last menstrual period was 1 week ago. Denies any concern for . States the pain is a 5/10 when sitting and a 7/10 with movement. Denies any saddle anesthesia or loss of bowel or bladder. Denies any radiation of pain into her lower extremities. Related Data Home Medications ?Medication ?Instructions ?Recorded ?Confirmed ?Last Taken ?Type albuterol 90 mcg-budesonide 80 inh inhalation 12/31/24 Unknown History mcg/actuation HFA aerosol inhaler (Airsupra) celecoxib 200 mg capsule mg 12/31/24 Unknown History dextroamphetamine-amphetamine ER PO 12/31/24 Unknown History 30 mg 24hr capsule,extend release fluticasone fur. 200 mcg-umeclid inhalation 12/31/24 Unknown History 62.5 mcg-vilant 25 mcg inhalat.powder (Trelegy Ellipta) levothyroxine 300 mcg tablet mcg 12/31/24 Unknown History cetirizine 10 mg tablet mg 01/11/25 Unknown History Allergies Allergy/AdvReac Type Severity Reaction Status Date / Time amoxicillin (From Augmentin) Allergy Intermediate gi upset Verified 12/31/24 19:54 clavulanic acid (From Allergy Intermediate gi upset Verified 12/31/24 19:54 Augmentin) Review of Systems Review of Systems: Pertinent positives per HPI. Patient denies any fever, chills, rash, headache, visual changes, dizziness, cough, runny nose, sore throat, shortness of breath, chest pain, palpitations, nausea, vomiting, diarrhea, constipation, abdominal pain, or any urinary issues. PMFSH Comments At the time of my signature, I reviewed and agree with the nursing past medical, surgical, social, and family history. There is no relevant family history pertinent to the patient complaint. Exam Narrative: General: Well-developed, well nourished, in no apparent distress Head: Normocephalic, atraumatic. Cardio: Regular rate and rhythm, s1 and s2 normal, no murmur appreciated. Resp: Clear to auscultation bilaterally, no rhonchi, rales, wheezing or rubs. Musculoskeletal: No deformity, no pain to palpation over the cervical or thoracic spine, tender to palpation over the lumbar spine, grossly normal range of motion, muscle strength strong and equal in BLE. SLT negative, patellar reflexes 2/4 bilaterally, negative foot drop, cautious slow-moving gait and station Course Course Emergency Course: Portions of this record may have been created with voice recognition software. Level of Care: Express Care Visit Vital Signs Vital signs: Vital Signs Temperature 35.8 C L 01/11/25 17:41 Pulse Rate 56 L 01/11/25 17:41 Respiratory Rate 20 01/11/25 17:41 Blood Pressure 113/82 01/11/25 17:41 Pulse Oximetry 98 01/11/25 17:41 Oxygen Delivery Room Air 01/11/25 17:41 Temperature 35.8 C L 01/11/25 17:41 Pulse Rate 56 L 01/11/25 17:41 Respiratory Rate 20 01/11/25 17:41 Blood Pressure 113/82 01/11/25 17:41 Pulse Oximetry 98 01/11/25 17:41 Oxygen Delivery Room Air 01/11/25 17:41 Vital signs reviewed MDM - Back Pain/Injury MDM Narrative Medical decision making narrative: At the time of visit patient is resting comfortably on the exam table. Patient appears to be nontoxic. Complaints of back pain times 2-3 days. Denies any known injury. History degenerative disc disease in her low back. Was getting out of the chair and began having some pain in the low back shortly afterwards. She reports she was seen 2 weeks ago for UTI and placed on antibiotics and finished the antibiotics entirely. Went to the ER few days after finishing the antibiotics and have her urine rechecked and it was negative for any sign of infection. She denies any urinary symptoms or vaginal discharge. Last menstrual period was 1 week ago. Denies any concern for . States the pain is a 5/10 when sitting and a 7/10 with movement. Denies any saddle anesthesia or loss of bowel bladder, denies any radiation of pain down her lower extremities. On exam she has tenderness to palpation over the lumbar spine without any neurological symptoms. Do not feel as though it is necessary to do an x-ray at this time as there was no injury. Plan: I suspect patient has acute low back pain with history of degenerative disc disease. Patient has no injury so I do not feel the need to complete an x- ray at this time. Patient had UTI 2 weeks ago but her symptoms resolved with antibiotics and she had a retest of the urine was negative for any sign of infection previously. Will send in prescription for Medrol Dosepak and Flexeril. Work note was given. Supportive measures were discussed with the patient and they voiced understanding discharge instructions and agrees to treatment plan. Return precautions reviewed Differential Diagnosis Differential diagnosis: Likely lumbar radiculopathy, sciatica, strain of lumbar region, renal colic, pyelonephritis and thoracic back pain Discharge Plan Discharge Clinical Impression: Hx of degenerative disc disease Low back pain Qualifiers: Chronicity: acute Back pain laterality: midline Sciatica presence: without sciatica Qualified Code(s): M54.50 - Low back pain, unspecified Patient Disposition: Home Condition: Stable Instructions: Antibiotic Form, Acute Low Back Pain (ED) Additional Instructions: Take any prescription medication only as prescribed-Medrol Dosepak and Flexeril Be mindful of sedation precautions given to you if taking a muscle relaxer. May use heat or ice to the affected area Consider massage or chiropractor adjustment if this was discussed with provider May use blue emu, lidocaine patches, or asper cream to affected area- do not apply heat or ice directly over cream- can cause burn. Complete appropriate back stretching exercises. Follow up with your PCP in 3-5 days if symptom persist. Patient Language: Vincentian Prescriptions: New methylprednisolone [Medrol (Dino)] 4 mg tablets,dose pack See Rx Instructions PO .COMPLEX Qty: 21 0RF Rx Instructions: orally per package directions cyclobenzaprine 10 mg tablet 10 mg PO Q8H PRN (Reason: muscle spasm) 7 Days Qty: 21 0RF No Action celecoxib 200 mg capsule levothyroxine 300 mcg tablet dextroamphetamine-amphetamine 30 mg capsule,extended release 24hr PO Trelegy Ellipta 200-62.5-25 mcg blister with device INHALATION Airsupra 90-80 mcg/actuation HFA aerosol inhaler INHALATION cetirizine 10 mg tablet Follow-up/Referrals: UNKNOWN,DOCTOR [Non-Staff] - Stand Alone Forms: Work/School Release IP Time of Disposition: 17:52 Quality NIHSS Nursing Documentation ED NIHSS nursing documentation: reviewed/agree
--- OUTSIDE RECORDS SUMMARY | 2025-01-11 17:32 | XMS_ITS | Encounter Summary ---
Author Organization [facility] Address 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 YES LOOM WEAVER documented in this encounter Plan of Treatment Upcoming Encounters Date Type Department Care Team (Late st Contact Info) Description 03/03/2025 10:30 AM CDT Office Visit [facility] Internal Medicine Swati Mauro [address] [place] [address] [place] [address] [place] [address] documented as of this encounter Visit Diagnoses Not on filedocumented in this encounter Care Teams Steel Spar Operator Relationship Specialty [place] [address] [place] [address] PCP - General Internal Medicine 11/25/22 documented as of this encounter
--- OUTSIDE RECORDS SUMMARY | 2025-01-11 17:32 | XMS_ITS | Continuity of Care Document ---
Author Organization [facility] Address [address] [place] [address] Phone Care Team Providers Care Performance Solutions Specialist Name Role Phone Chris RAYMUNDO, Apurva Unavailable [...] 1 [{Url}] <Url iRemMajorVers ion=1.3 iRemMinorVers ion=5.8 seq_no=9933p [id number] 7abad template_name =PacsEx><><![CDATA[h [email or web address] IntegrationPr [email or web address]? CMD=OPENSTUDY &ACCESSION=AR [id number]]]></ Path></Url> Final Advance Directives Directive Yes / No Effective Date File Name No Information Encounters Encounter Description Practice Location Reason(s) For Visit Diagnoses Date Provider Providers Copied on Encounter [facility] , [address], [place], [place], [address], tel:[phone] [facility] Encounter for test, result unknown Chris Mixon. [address], [place], [place], [address], . tel:[phone] Referring Provider: Apurva Perez, [address], [place], [address] . tel:[phone] [facility] , [address], [place], [place], [address], tel:[phone] [facility] [place] routine (chief complaint) Encntr for suprvsn of normal first preg, first trimesterLess than 8 weeks gestation of [facility]. [address], [place], [place], [address], . tel:[phone] Referring Provider: Ham Garcia, [address], [place], [address] . tel:[phone] [facility] , [address], [place], [place], [address], tel:[phone] [facility] Encounter for test, result unknown Ezra Mims. [address], [place], [place], [address], . tel:[phone] Family History Family Member Type Diagnosis Age At Onset No Information Payers Payer name Insurance type Covered alliance party ID Authoriza tion(s) Medicaid - Medical [id number] Social History Type Description Quantity Date Captured Comments Alcohol Use Details Unknown Caffeine Use Details Unknown Tobacco Use Status Smoking Status No Information Sex Female Chief Complaint And Reason For Visit No Information Reason For Referral Reason For Referral No Information History Of Present Illness Encounter Date Complaint History Of Prese nt Illness routine 11/15/2017 [facility] with 27 year [facility] A1 (SABx1) [...]
--- OUTSIDE RECORDS SUMMARY | 2025-01-11 17:32 | XMS_ITS | Encounter Summary ---
Author Organization [facility] Address [address] [place] [address] Care Team Providers Care Multimedia Services Manager Name Role Phone Cecil Reza MD Primary Care Provider [phone] Reason for Visit * Reason Comments Medication Refill Encounter Details Date Type Department Care Team (Late Contact Info) Description 02/27/2019 Refill [facility] Maternal and Medicine - Medical [place] B [address], [place] [address] Gregory Hutchins MD [address] [place] [address] Acquired hypothyroidism Social History Tobacco Use Types Packs/Day Years Used Date Smoking Tobacco: Every Day Cigarettes 0.5 15 Smokeless Tobacco: Never Alcohol Use Standard Drinks/Week Comments Not Currently 2.5 (1 standard drink = 0.6 oz p ure alcohol) socially Comments Yes Sex and Gender Information Value Date Recorded Sex Assigned at Not on file 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 Gender Identity Not on file Sexual Orientation Not on file Occupation Industry Job Start Date Job End Date Not on file Not on file Not on file Not on file documented as of this encounter Plan of Treatment Upcoming Encounters Date Type Department Care Team (Late Contact Info) Description 03/03/2025 10:30 AM CDT Office Visit [facility] Internal Medicine Swati Mauro [address] [facility] [address] [place] [address] [place] [address] [place] [address] documented as of this encounter Visit Diagnoses Diagnosis Acquired hypothyroidism Unspecified hypothyroidism documented in this encounter Care Teams Multimedia Services Manager Relationship Specialty [place] [address] [place] [address] PCP - General Internal Medicine 11/25/22 documented as of this encounter
--- OUTSIDE RECORDS SUMMARY | 2025-01-11 17:32 | XMS_ITS | Continuity of Care Document ---
Author Organization [facility] Address [address] [place] [address] Phone Care Team Providers Care Therapeutic Support Staff Name Role Phone Mirta PT, DPT, Cory Unavailable Unavail able Procedures Procedure Date Progress Note Therapeutic Exercise Neuromuscular Re-Ed Manual Therapy Therapeutic Exercise Neuromuscular Re-Ed Manual Therapy Therapeutic Exercise Neuromuscular Re-Ed Manual Therapy Therapeutic Exercise Hot or Cold Pack Mechanical Traction Electrical Stimulation PT Evaluation Moderate Complexity Therapeutic Exercise Therapeutic Activities Manual Therapy Hot or Cold Pack Electrical Stimulation Advance Directives Directive Yes / No Effective Date File Name No Information Encounters Encounter Description Practice Location Reason(s) For Visit Diagnoses Date Provider Providers Copied on Encounter [facility], [place], [place], [id number], [place] tel:[phone] CervicalgiaOther specified dorsopathies, cervical regionOth symptoms and signs involving the musculoskeletal systemAbnormal posture 8 Mirta [address]. . [facility], [place], [place], [id number], [place] tel:[phone] CervicalgiaOther specified dorsopathies, cervical regionOth symptoms and signs involving the musculoskeletal systemAbnormal posture 0 8 Hammers Mahesh. . [facility] [address], [place], [place], [id number], tel:[phone] [address] CervicalgiaOther specified dorsopathies, cervical regionOth symptoms and signs involving the musculoskeletal systemAbnormal posture 8 Hammers Mahesh. . [facility], [address] [facility] [address], [place], [place], [id number], tel:[phone] [address] CervicalgiaOther specified dorsopathies, cervical regionOth symptoms and signs involving the musculoskeletal systemAbnormal posture Sep- 8 Opal Chayito. . [facility] [address], [place], [place], [id number], tel:[phone] [address] CervicalgiaOther specified dorsopathies, cervical regionOth symptoms and signs involving the musculoskeletal systemAbnormal posture Feb-2 8 Opal Chayito. . Family History Family Member Type Diagnosis Age At Onset No Information Payers Payer name Insurance type Covered alliance party ID Deonte kerr(s) Jordan ALONSO [id number] Social History Type Description Quantity Date Captured [...]
--- OUTSIDE RECORDS SUMMARY | 2025-01-11 17:33 | XMS_ITS | Clinical Summary ---
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
--- OUTSIDE RECORDS SUMMARY | 2025-01-11 17:33 | XMS_ITS | Clinical Summary ---
Author Organization [facility] Address [address] [place] [address] Phone Care Team Providers Care Candy Cooker Helper Name Role Phone Cecil Reza MD Primary Care Provider [phone] Allergies Active Allergy Reactions Criticality Noted Date Comments Amoxicillin-Pot Clavulanate Nausea and Vomiting Low 09/06/2017 Banana Rash Low 02/01/2016 Latex Rash Low 12/03/2018 Metoclopramide Hcl Other (See Comments) 03/07/2016 irritable Naproxen Nausea and Vomiting Low 05/15/2014 Prochlorperazine Other (See Comments) 01/30/2016 Irritable, anxiety Medications Allergy Relief, cetirizine, 10 mg tabletIndication s:Allergic rhinitis, unspecified seasonality, unspecified trigger Take 1 [...] times daily. 45 Gram 06/28/19 25 Active norethindrone-e. estradioL-iron (Lo Loestrin Fe) 1 mg-10 mcg (24)/10 mcg (2) Tablet per tabletIndication s:Abnormal uterine bleeding Take 1 Tablet by mouth daily. 84 Tablet 06/28/19 25 Active Trelegy Ellipta 100-62.5-25 mcg Disk with DeviceIndication s:Mild intermittent asthma without complication INHALE 1 PUFF ONCE DAILY RINSE MOUTH AFTER USE 60 Each 3 12/12/19 25 Active albuterol-budeso nide (Airsupra) 90-80 mcg/actuation HFA Aerosol InhalerIndicatio ns:Moderate persistent asthma without complication Take 11 Grams by inhalation every 6 hours. 11 Gram 3 12/12/19 25 Active amphetamine-dext roamphetamine (Adderall XR) 30 mg Extended Release 24 hour capsuleIndicatio ns:Attention deficit hyperactivity disorder (ADHD), unspecified ADHD type Take 1 Capsule (30 mg) by mouth daily in the morning. Max Daily Amount: 30 mg 30 Capsule 12/20/19 25 Active docusate sodium (COLACE) 100 mg capsule Take 1 capsule by mouth twice daily 60 Capsule 01/07/20 25 Active docusate sodium (COLACE) 100 mg capsule Take 1 Capsule (100 mg) by mouth 2 times daily. 60 Capsule 09/11/19 25 2024 Discontinued amphetamine-dext roamphetamine (Adderall XR) 30 mg Extended Release 24 hour capsuleIndicatio ns:Attention deficit hyperactivity disorder (ADHD), unspecified ADHD type Take 1 Capsule (30 mg) by mouth daily in the morning. Max Daily Amount: 30 mg 30 Capsule 12/12/19 25 2024 Discontinued(R eorder) Active Problems Problem Noted Date Diagnosed Date [facility] 06/21/22 - girl Lu - JW 06/21/2022 [...] Encounters Date Type Department Care Team Description 01/06/2025 [facility] Swati Mauro [address] [place] [address] Cecil Reza MD 01/05/2025 [facility] ELECTRICAL REPAIRER [facility] [address] [place] [address] Narinder Roberts MD Abnormal uterine bleeding 12/18/2024 External Device Data ST[facility] ABSTRACTION Provider, Abstract 12/18/2024 External Device Data [facility] ABSTRACTION Provider, Abstract 12/16/2024 Medication Prior Auth Encounter [facility] Prescription Management Dept [facility] [facility] [place] [address] Maria G Quinones, PHARMACIST 12/10/2024 [facility] [place] [address] [address] [place] [address] Judy Zimmer FNP Moderate persistent asthma without complication 12/10/2024 [facility] ELECTRICAL REPAIRER - Medical [facility] [address] [facility] [address] [place] [address] Angela Guajardo, HRIS COORDINATOR 12/10/2024 [facility] [place] [address] [address] [place] [phone] Cecil Reza MD Mild intermittent asthma without complication; Attention deficit hyperactivity disorder (ADHD), unspecified ADHD type 11/20/2024 External Device Data [facility] ABSTRACTION Provider, Abstract 10/22/2024 [facility] ELECTRICAL REPAIRER [facility] [address] [place] [address] Narinder Roberts MD 10/22/2024 [facility] [place] [address] [address] [place] [address] Judy Zimmer FNP Moderate persistent asthma without complication 10/22/2024 [facility] [place] [address] [place] [address] Cecil Reza MD Mild intermittent asthma without [...] on file Legal Sex Female 7:24 PM CONTRACTS ADVISOR Gender Identity Not on file Sexual Orientation Not on file Occupation Industry Job Start Date Job End Date Not on file Not on file Not on file Not on file Last Filed Vital Signs Vital Sign Reading Time Taken Comments Blood Pressure 110/74 04/18/2024 1:05 PM CONTRACTS ADVISOR Pulse 84 04/18/2024 1:05 PM CONTRACTS ADVISOR Temperature 36.6 C (97.8 F) 04/18/2024 1:05 PM CONTRACTS ADVISOR Respiratory Rate 18 06/26/2022 7:52 AM CONTRACTS ADVISOR Oxygen Saturation 98% 04/18/2024 1:05 PM CONTRACTS ADVISOR Inhaled Oxygen Concentration - - Weight 102.1 kg (225 lb) 04/18/2024 1:05 PM CONTRACTS ADVISOR Height 170.2 cm (5' 7) 04/18/2024 1:05 PM CONTRACTS ADVISOR Body Mass Index 35.24 04/18/2024 1:05 PM CONTRACTS ADVISOR Plan of Treatment Upcoming Encounters Date Type Department Care Team (Late st Contact Info) Description 03/03/2025 10:30 AM CDT Office Visit [facility] Internal Medicine Swati Mauro [address] [place] [phone] Charlene Mely [address] [place] [phone] Health Maintenance Due Date Last Done Comments [...] 09/06/2017 PAP SMEAR 04/21/2024 04/21/2021, 03/05, 10/17/2017 Preventative Visit- Commercial 06/05/2024 0 02/29/2024, 11/06/2023, 11/25/2022, Additional history exists INFLUENZA VACCINE (#1) 2025 , 02/23/2022, 06/09/2021, [...] PAP RLFX HPV Routine 04/21/2021 12:00 AM CONTRACTS ADVISOR Well woman exam with routine gynecological exam from Last 3 Months or Most Recently Relevant to Health Maintenance Results * HEMOGLOBIN A1C (01/27/2022 11:18 AM CDT) HEMOGLOBIN A1C 4.9 <5.7 % of total Hgb [facility] hector Lentz Comment: For the purpose of screening for the presence of diabetes: <5.7% Consistent with the absence of diabetes 5.7-6.4% Consistent with increased risk for diabetes (prediabetes) > or =6.5% Consistent with diabetes This assay result is consistent with a decreased risk of diabetes. Currently, no consensus exists regarding use of hemoglobin A1c for diagnosis of diabetes in children. According to [place] Diabetes Association (ADA) guidelines, hemoglobin A1c <7.0% represents optimal control in non- diabetic patients. Different metrics may apply to specific patient populations. Standards of Medical Care in Diabetes(ADA). ESTIMATED AVERAGE GLUCOSE (MG/DL) 94 mg/dL [facility] Lentz ESTIMATED AVERAGE GLUCOSE (MMOL/L) 5.2 mmol/L [facility] Lentz Comment: FASTING:UNKNOWN FASTING: UNKNOWN Test Performed at: [place] [address] [address] [place] [address] EricaMaría Elenagloria [facility] 01/27/2022 11:1 8 AM CDT 01/27/2022 11:20 AM CDT Haylee Hong MD CHEMISTRY ORDERABLES Final Result [facility] [phone] [place] [address] [address] [place] [address] * CERV/VAG CYTO SCREEN PAP RLFX HPV (04/21/2021 12:00 AM CONTRACTS ADVISOR) CLINICAL INFORMATION [facility] Comment:SCREENING LAST MENSTRUAL PERIOD [facility] Comment:INFORMATION NOT PROV IDED PREV PAP: [facility] Comment:INFORMATION NOT PROV IDED PREV BX: [facility] Comment:INFORMATION NOT PROV IDED SOURCE [facility] Comment:Endocervix ADEQUACY: [facility] Comment: Satisfactory for evaluation. Endocervical/transformation zone component present. Age and/or menstrual status not provided PAP INTERP [facility] Comment:Negative for intraep ithelial lesion or malignancy. COMMENT (PAP TEST) [facility] Comment: This Pap test has been evaluated with computer assisted technology. MOBILE PRODUCT MANAGER: [facility] Comment: SOUTH, CT(ASCP) CT screening location: [place] [address] [address] [place] [address] EXPLANATORY NOTE [facility] Comment: EXPLANATORY NOTE: The Pap is a screening test for cervical cancer. It is not a diagnostic test and is subject to false negative and false positive results. It is most reliable when a satisfactory sample, regularly obtained, is submitted with relevant clinical findings and history, and when the Pap result is evaluated along with historic and current clinical information. Test Performed at: [place] [address] [address] [place] [address] [facility] Genital SWAB OF ENDOCERVIX / Unknown 04/21/2021 04/22/2021 9:27 PM CONTRACTS ADVISOR us Narinder Roberts MD PATHOLOGY/CYTOLOGY ORDERABL ES Final Result [facility] [address] [place] [address] from Last 3 Months or Most Recently Relevant to Health Maintenance Insurance RX INFOCROSSING Medicaid RX LO[employer]ZA PLANS (INTERNAL) [facility] Plans [facility] [place] [address] Advance Directives For more information, please contact: [phone] * Full Code (Latest Code Status on [...] 2:25 PM 12/21/2021 6:51 PM Care Teams Candy Cooker Helper Relationship Specialty [place] [address] [facility] [address] [place] [address] PCP - General Internal Medicine 11/25/22
--- OUTSIDE RECORDS SUMMARY | 2025-01-11 17:33 | XMS_ITS | Clinical Summary ---
Author Organization [facility] [employer] Address [address] [place] [address] Care Team Providers Care Clerical Production Worker Name Role Phone Moni Mello MD Primary Care Provider [phone] Source Comments [facility],non-owned Affiliates and Associated Physician Practices is amultiple site organization consisting of ambulatory clinics and hospital sitesin [place], [place], [place] and [place]. This disclosure is being madepursuant to the Care Everywhere program and may not contain all information available regarding this patient. Last updated 18.[facility] [employer] Allergies Active Allergy Reactions Criticality Noted Date [...] meal 60 tablet 4 9 Active heparin 23047 UNIT/ML injection Inject 10,000 Units subcutaneously 2 [...] mouth once daily 100 tablet 0 Active Esairuze-Dlb-U e-FA ( VITAMINS) 0.8 MG TABS Take [...] on file Legal Sex Female 9:26 AM CLOTH FINISHING RANGE OPERATOR Gender Identity Not on file Sexual Orientation Not on file Last Filed Vital Signs Vital Sign Reading Time Taken Comments Blood Pressure 134/72 06/28/2019 1:30 PM CLOTH FINISHING RANGE OPERATOR Pulse 79 06/28/2019 1:30 PM CLOTH FINISHING RANGE OPERATOR Temperature 36.8 C (98.2 F) 06/28/2019 1:30 PM CLOTH FINISHING RANGE OPERATOR Respiratory Rate 18 06/28/2019 1:30 PM CLOTH FINISHING RANGE OPERATOR Oxygen Saturation 99% 06/28/2019 1:30 PM CLOTH FINISHING RANGE OPERATOR Inhaled Oxygen Concentration - - Weight 101.5 kg (223 lb 12.8 oz) 2019 12:10 AM CLOTH FINISHING RANGE OPERATOR Height 175.3 cm (5' 9) 06/21/2019 12:1 0 AM CLOTH FINISHING RANGE OPERATOR Body Mass Index 33.05 06/21/2019 12:10 AM CLOTH FINISHING RANGE OPERATOR Plan of Treatment Health Maintenance Due [...] CULTURE STREP B Routine 06/12/2019 1:30 PM CLOTH FINISHING RANGE OPERATOR , unspecified gestational age from Last 3 Months or Most Recently Relevant to Health Maintenance Results * CULTURE STREP B (06/12/2019 1:30 PM CLOTH FINISHING RANGE OPERATOR) Culture Strep B Negative for beta-hemolytic Streptococcus Group B KRISH 06/15/2019 7:23 AM CLOTH FINISHING RANGE OPERATOR [facility] Microbiology MISCELLANEOUS SAMPLES / Unknown Collection / Unknown 06/12/2019 1:30 PM CLOTH FINISHING RANGE OPERATOR 06/12/2019 2:45 PM CLOTH FINISHING RANGE OPERATOR Ale Pennington MD LAB - MICROBIOLOGY ORDERABLES Final Result [facility] [address] [place] [address], [facility] [phone] from Last 3 Months or Most Recently Relevant to Health Maintenance Insurance [facility] MED[facility] Advance Directives Documents on File Type Date Recorded Patient Railway Equipment Operator Expl anation Adv Directive/Living Will/POA 06/15/2010 11:20 [...] 8:00 PM 02/28/2017 4:37 PM Care Teams Clerical Production Worker Relationship Specialty Start Date End Date Moni Mello MD [address] [place] [address] [facility] - General 06/10/19
--- OUTSIDE RECORDS SUMMARY | 2025-01-11 17:33 | XMS_ITS | Encounter Summary ---
Author Organization [facility] Address [address] [place] [address] Care Team Providers Care Software Development Leader Name Role Phone Cecil Reza MD Primary Care Provider [phone] Reason for Visit * Reason Comments Medication Refill Encounter Details Date Type Department Care Team (Late st Contact Info) Description 04/18/2016 Refill [facility] [address] , [address] [phone] Loni Kemp, DIRECTOR VETERINARY [address] [address] Social History Tobacco Use Types Packs/Day Years Used Date Smoking Tobacco: Every Day Cigarettes 1 12 Alcohol Use Standard Drinks/Week Comments Yes 2.5 (1 standard drink = 0.6 oz p ure alcohol) socially Comments No Sex and Gender Information Value Date Recorded Sex Assigned at Not on file Legal Sex Female 7:24 PM SHELLFISH WEIGHER Gender Identity Not on file Sexual Orientation Not on file Occupation Industry Job Start Date Job End Date Not on file Not on file Not on file Not on file documented as of this encounter Plan of Treatment Upcoming Encounters Date Type Department Care Team (Late st Contact Info) Description 03/03/2025 10:30 AM CDT [facility] Swati Mauro [address] [place] [address] [place] [address] [place] [address] documented as of this encounter Visit Diagnoses Not on filedocumented in this encounter Care Teams Software Development Leader Relationship Specialty [place] [address] [facility] [address] [place] [address] PCP - General Internal Medicine 11/25/22 documented as of this encounter
--- OUTSIDE RECORDS SUMMARY | 2025-01-11 17:33 | XMS_ITS | Continuity of Care Document ---
Author Organization [facility] Address [address] [place] [address] Phone Care Team Providers Care Upholsterer Inside Name Role Phone Unavailable Unavailable Unavailable Medications [...] Encounter [facility], [address], [place], [place], [address] , [place] tel:[phone] [facility] No Information 4 No Information [facility], [address], [place], [place], [address] , [place] tel: [phone] [facility] No Information 4 No Information OFFICE/OUTPA TIENT VISIT, EST [facility], [address], [place], [place], [address] , [place] tel: [phone] [facility] depo (chief complaint) Surveillance of other contraceptive methodInfluen za Vaccine 3 No Information [facility], [address], [place], [place], [address] , [place] tel: [phone] Dental Renee Dental examination 3 No Information OFFICE/OUTPA TIENT VISIT, EST [facility], [address], [place], [place], [address] , [place] tel: [phone] [facility] hypothyroidis m (chief complaint)ins omnia (chief complaint) Other specified acquired hypothyroidis mRoutine Medical ExamInsomniaS moker 3 No Information OFFICE/OUTPA TIENT VISIT, EST [facility], [address], [place], [place], [address] , [place] tel: [phone] [facility] depo (chief complaint)abn ormal bleeding (chief complaint) Surveillance of other contraceptive method 3 No Information OFFICE/OUTPA TIENT VISIT, EST [facility], [address], [place], [place], [address] , [place] tel: [phone] [facility] suture removal (chief complaint) Visit for suture removal 3 No Information OFFICE/OUTPA TIENT VISIT, EST [facility], [address], [place], [place], [address] , [place] tel: [phone] [facility] gardisil (chief complaint) Need for prophylactic vaccination and inoculation, other viral diseases 3 No Information OFFICE/OUTPA TIENT VISIT, EST [facility], [address], [place], [place], [address] , [place] tel: [phone] [facility] hypothyroidis m (chief complaint)lencho n (chief complaint)abd ominal discomfort (chief complaint) Other specified acquired hypothyroidis mAbdominal pain, unspecified siteJoint pain 3 No Information OFFICE/OUTPA TIENT VISIT, EST [facility], [address], [place], [place], [address] , [place] tel: [phone] [facility] gardisil (chief complaint)pt wants implanon removed (chief complaint) Surveillance of implantable subdermal contraceptive Surveillance of other contraceptive methodNeed for prophylactic vaccination and inoculation, other viral diseases 3 No Information OFFICE/OUTPA TIENT VISIT, EST [facility], [address], [place], [place], [address] , [place] tel: [phone] [facility] hypothyroidis m (chief complaint)anx iety (chief complaint)boi l (chief complaint) Other specified acquired hypothyroidis mAbdominal pain, unspecified siteAbscess of skin 3 No Information OFFICE/OUTPA TIENT VISIT, EST [facility], [address], [place], [place], [address] , [place] tel: [phone] [facility] hypothyroidis m (chief complaint)anx iety (chief complaint)abd ominal discomfort (chief complaint) Other specified acquired hypothyroidis mAcute right flank painOther acute painSmoker 3 No Information 1ST COMPRE PREV MED E/M NEW PT 18-39 [facility], [address], [place], [place], [address] , [place] tel: [phone] [facility] annual visit (chief complaint)vag inal discharge (chief complaint) Routine gynecological examinationLe ukorrhea, not specified as infectiveInse rtion of implantable subdermal contraceptive Need for prophylactic vaccination and inoculation, other viral diseases 2 No Information OFFICE/OUTPA TIENT VISIT, EST [facility], [address], [place], [place], [address] , [place] tel: [phone] [facility] hypothyroidis m (chief complaint)R eye pain (chief complaint)R posterior flank pain (chief complaint) Other specified acquired hypothyroidis mPain, eye, rightRight flank pain 2 No Information OFFICE/OUTPA TIENT VISIT, EST [facility], [address], [place], [place], [address] , [place] tel: [phone] [facility] hypothyroidis m (chief complaint)col d symptoms (chief complaint) Other specified acquired hypothyroidis mAcute bronchitisRou jin general medical examination at a health care facility 2 No Information OFFICE/OUTPA TIENT VISIT, [facility], [address], [place], [place], [address] , [place] tel: [phone] [facility] Cellulitis and abscess of other specified sitesOther specified acquired hypothyroidis m 2 No Information OFFICE/OUTPA TIENT VISIT, NEW [facility], [address], [place], [place], [address] , [place] tel: [phone] [facility] medication rewrite from hospital (chief [...] Record Payers Payer name Insurance type Covered libertarian ID Authoriza tion(s) No Information Social History Type Description Quantity Date Captured Comments Sex Female Smoking Status No Information Chief Complaint And Reason For Visit No Information Reason For Referral Reason For Referral No Information Plan Of Treatment Date Type Action Status Goal AST. Due on due Goal ALT. Due on due Goal Lipid Panel. Due on 013 due Goal Urinalysis. Due on 13 due Goal Breast exam. Due on 012 due Goal PAP. Due on due Goal TSH. Due on due Goal H&P. Due on due Goal Hemoglobin A1C. Due on due Goal BMP fasting. Due on 013 due Goal HPV (3rd). Due on 3 due Goal HPV (2nd). Due on 3 due Goal HPV (1st). Due on 2 due Referral Referred To: [address], [phone] Ordered: Referral: [facility]. Radiology. Evaluate and treat. Appointment [...] Lab Order CHLAMYDI A/N. GONORRHOEAE DNA, SDA ([id number]), Appointment on: , Sent on: Sent Future Order: Lab Order HEPATITI S A AB, TOTAL W/REFL IGM ([id number]), Appointment on: , Sent on: Sent Future Order: Lab Order HEPATITI S B CORE AB TOTAL W/REFL IGM ([id number]), Appointment on: , Sent on: Sent Future [...] HIV AB, HIV 1/2, EIA, WITH REFLEXES ([id number]), Appointment on: , Sent on: Sent Future Order: Lab Order RPR (DX) W/REFL TITER AND CONFIRMATORY TESTING ([id number]), Appointment on: , Sent on: Sent History Of Present Illness Encounter Date Complaint History Of Prese nt Illness No Information Functional Status Date Functional Assessmen t No Information Instructions Date Instruction Additional Infor mation Reviewed medications Change medication Continue current medication Patient understood and made info rmed decision Reviewed medications Continue current medication Patient understood [...]
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
--- OUTSIDE RECORDS SUMMARY | 2025-01-11 17:35 | XMS_ITS | Continuity of Care Document ---
Author Organization [facility] Address [address] [place] [address] Phone Care Team Providers Care Digital Media Producer Name Role Phone Mirta PT, DPT, Cory [...] Diagnoses Date Provider Providers Copied on Encounter [facility] [place], [place], [address], [place] tel:[phone] [place] CervicalgiaOther specified dorsopathies, cervical regionOth symptoms and signs involving the musculoskeletal systemAbnormal posture 8 Mirta Ray. . [facility] [place], [place], [address], [place] tel:[phone] [place] CervicalgiaOther specified dorsopathies, cervical regionOth symptoms and signs involving the musculoskeletal systemAbnormal posture 0 8 Hammers Mahesh. . [facility] [address], [place], [place], [address], tel:[phone] [place] CervicalgiaOther specified dorsopathies, cervical regionOth symptoms and signs involving the musculoskeletal systemAbnormal posture 8 Hammers Mahesh. . [facility], [address], [place], [place], [address], tel:[phone] [place] CervicalgiaOther specified dorsopathies, cervical regionOth symptoms and signs involving the musculoskeletal systemAbnormal posture Sep- 8 Opal Chayito. . [facility] [address], [place], [place], [address], tel:[phone] [place] CervicalgiaOther specified dorsopathies, cervical regionOth symptoms and signs involving the musculoskeletal systemAbnormal posture Feb-2 8 Opal Chayito. . Family History Family Member Type Diagnosis Age At Onset No Information Payers Payer name Insurance type Covered green party ID Deonte kerr(s) Jordan ALONSO [id number] Social History Type Description Quantity Date Captured [...]
--- OUTSIDE RECORDS SUMMARY | 2025-01-11 17:35 | XMS_ITS | Continuity of Care Document ---
Author Organization [facility] Address [address] [place] [address] Phone Care Team Providers Care Hand Silvering Supervisor Name Role Phone Unavailable Unavailable Unavailable Medications [...] Encounter [facility], [address], [place], [place], [address] , [place] tel:[phone] [facility] No Information 4 No Information [facility], [address], [place], [place], [address] , [place] tel: [phone] [facility] No Information 4 No Information OFFICE/OUTPA TIENT VISIT, EST [facility], [address], [place], [place], [address] , [place] tel: [phone] [facility] depo (chief complaint) Surveillance of other contraceptive methodInfluen za Vaccine 3 No Information [facility], [address], [place], [place], [address] , [place] tel: [phone] Dental Renee Dental examination 3 No Information OFFICE/OUTPA TIENT VISIT, EST [facility], [address], [place], [place], [address] , [place] tel: [phone] [facility] hypothyroidis m (chief complaint)ins omnia (chief complaint) Other specified acquired hypothyroidis mRoutine Medical ExamInsomniaS moker 3 No Information OFFICE/OUTPA TIENT VISIT, EST [facility], [address], [place], [place], [address] , [place] tel: [phone] [facility] depo (chief complaint)abn ormal bleeding (chief complaint) Surveillance of other contraceptive method 3 No Information OFFICE/OUTPA TIENT VISIT, EST [facility], [address], [place], [place], [address] , [place] tel: [phone] [facility] suture removal (chief complaint) Visit for suture removal 3 No Information OFFICE/OUTPA TIENT VISIT, EST [facility], [address], [place], [place], [address] , [place] tel: [phone] [facility] gardisil (chief complaint) Need for prophylactic vaccination and inoculation, other viral diseases 3 No Information OFFICE/OUTPA TIENT VISIT, EST [facility], [address], [place], [place], [address] , [place] tel: [phone] [facility] hypothyroidis m (chief complaint)lencho n (chief complaint)abd ominal discomfort (chief complaint) Other specified acquired hypothyroidis mAbdominal pain, unspecified siteJoint pain 3 No Information OFFICE/OUTPA TIENT VISIT, EST [facility], [address], [place], [place], [address] , [place] tel: [phone] [facility] gardisil (chief complaint)pt wants implanon removed (chief complaint) Surveillance of implantable subdermal contraceptive Surveillance of other contraceptive methodNeed for prophylactic vaccination and inoculation, other viral diseases 3 No Information OFFICE/OUTPA TIENT VISIT, EST [facility], [address], [place], [place], [address] , [place] tel: [phone] [facility] hypothyroidis m (chief complaint)anx iety (chief complaint)boi l (chief complaint) Other specified acquired hypothyroidis mAbdominal pain, unspecified siteAbscess of skin 3 No Information OFFICE/OUTPA TIENT VISIT, EST [facility], [address], [place], [place], [address] , [place] tel: [phone] [facility] hypothyroidis m (chief complaint)anx iety (chief complaint)abd ominal discomfort (chief complaint) Other specified acquired hypothyroidis mAcute right flank painOther acute painSmoker 3 No Information 1ST COMPRE PREV MED E/M NEW PT 18-39 [facility], [address], [place], [place], [address] , [place] tel: [phone] [facility] annual visit (chief complaint)vag inal discharge (chief complaint) Routine gynecological examinationLe ukorrhea, not specified as infectiveInse rtion of implantable subdermal contraceptive Need for prophylactic vaccination and inoculation, other viral diseases 2 No Information OFFICE/OUTPA TIENT VISIT, EST [facility], [address], [place], [place], [address] , [place] tel: [phone] [facility] hypothyroidis m (chief complaint)R eye pain (chief complaint)R posterior flank pain (chief complaint) Other specified acquired hypothyroidis mPain, eye, rightRight flank pain 2 No Information OFFICE/OUTPA TIENT VISIT, EST [facility], [address], [place], [place], [address] , [place] tel: [phone] [facility] hypothyroidis m (chief complaint)col d symptoms (chief complaint) Other specified acquired hypothyroidis mAcute bronchitisRou jin general medical examination at a health care facility 2 No Information OFFICE/OUTPA TIENT VISIT, [facility], [address], [place], [place], [address] , [place] tel: [phone] [facility] Cellulitis and abscess of other specified sitesOther specified acquired hypothyroidis m 2 No Information OFFICE/OUTPA TIENT VISIT, NEW [facility], [address], [place], [place], [address] , [place] tel: [phone] [facility] medication rewrite from hospital (chief [...] Record Payers Payer name Insurance type Covered republican ID Authoriza tion(s) No Information Social History Type Description Quantity Date Captured Comments Sex Female Smoking Status No Information Chief Complaint And Reason For Visit No Information Reason For Referral Reason For Referral No Information Plan Of Treatment Date Type Action Status Goal BMP fasting. Due on 013 due Goal Hemoglobin A1C. Due on due Goal H&P. Due on due Goal TSH. Due on due Goal PAP. Due on due Goal Breast exam. Due on 012 due Goal Urinalysis. Due on 13 due Goal Lipid Panel. Due on 013 due Goal ALT. Due on due Goal AST. Due on due Goal HPV (3rd). Due on 3 due Goal HPV (2nd). Due on 3 due Goal HPV (1st). Due on 2 due Referral Referred To: [address], [phone] Ordered: Referral: [facility]. Radiology. Evaluate and treat. Appointment date/timeframe: 07/26/2012 [...] Lab Order CHLAMYDI A/N. GONORRHOEAE DNA, SDA ([id number]), Appointment on: , Sent on: Sent Future Order: Lab Order HEPATITI S A AB, TOTAL W/REFL IGM ([id number]), Appointment on: , Sent on: Sent Future Order: Lab Order HEPATITI S B CORE AB TOTAL W/REFL IGM ([id number]), Appointment on: , Sent on: Sent Future [...] HIV AB, HIV 1/2, EIA, WITH REFLEXES ([id number]), Appointment on: , Sent on: Sent Future Order: Lab Order RPR (DX) W/REFL TITER AND CONFIRMATORY TESTING ([id number]), Appointment on: , Sent on: Sent History Of Present Illness Encounter Date Complaint History Of Prese nt Illness No Information Functional Status Date Functional Assessmen t No Information Instructions Date Instruction Additional Infor mation Reviewed medications Patient understood and made info rmed decision Change medication Continue current medication Patient understood and made info rmed decision Continue current medication Reviewed medications Change medication Continue current medication Reviewed medications Patient understood and made info rmed decision Patient understood and made info rmed decision Continue current medication Reviewed medications Patient understood and made info rmed decision Continue current medication Reviewed medications Reviewed medications Patient understood and made info rmed decision Continue current medication Activity as tolerated Continue current medication Assessments Type Assessment Date No Information Patient Care Teams Name Effective Dates (start - stop) Status Members No Information
--- OUTSIDE RECORDS SUMMARY | 2025-01-11 17:35 | XMS_ITS | Continuity of Care Document ---
Author Organization [facility] Address [address] [place] [address] Phone Care Team Providers Care High Climber Name Role Phone Chris RAYMUNDO, Apurva Unavailable [...] 1 [{Url}] <Url iRemMajorVers ion=1.3 iRemMinorVers ion=5.8 seq_no=0890s [id number] 7abad template_name =PacsEx><><![CDATA[h [email or web address] [email or web address]? CMD=OPENSTUDY &ACCESSION=CT [id number]]]></ Path></Url> Final Advance Directives Directive Yes / No Effective Date File Name No Information Encounters Encounter Description Practice Location Reason(s) For Visit Diagnoses Date Provider Providers Copied on Encounter [facility] , [address], [place], [place], [address], tel:[phone] [facility] Encounter for test, result unknown Chris Mixon. [address], [place], [place], [address], . tel:[phone] Referring Provider: Apurva Perez, [address], [place], [address] . tel:[phone] [facility] , [address], [place], [place], [address], tel:[phone] [facility] [place] routine (chief complaint) Encntr for suprvsn of normal first preg, first trimesterLess than 8 weeks gestation of [facility]. [address], [place], [place], [address], . tel:[phone] Referring Provider: Ham Garcia, [address], [place], [address] . tel:[phone] [facility] , [address], [place], [place], [address], tel:[phone] [facility] Encounter for test, result unknown Ezra Mims. [address], [place], [place], [address], . tel:[phone] Family History Family Member Type Diagnosis Age At Onset No Information Payers Payer name Insurance type Covered libertarian ID Authoriza tion(s) Medicaid - Medical [id number] Social History Type Description Quantity Date Captured Comments Alcohol Use Details Unknown Caffeine Use Details Unknown Tobacco Use Status Smoking Status No Information Sex Female Chief Complaint And Reason For Visit No Information Reason For Referral Reason For Referral No Information History Of Present Illness Encounter Date Complaint History Of Prese nt Illness routine [facility]15/[facility] 27 [facility] A1 (SABx1) [...]
[2025-01-11 17:41] VITALS: BP 113/82; PULSE 56; RESP 20; TEMP 35.8; O2SAT 98
== END 2025-01-11 17:57 | disposition home or self-care (01) ==
PROVIDERS: Emergency Provider Nurse Practitioner Family
DX: M54.50 Low back pain, unspecified (principal); M51.369 Other intervertebral disc degeneration, lumbar region without mention of lumbar back pain or lower extremity pain; J45.909 Unspecified asthma, uncomplicated; M19.90 Unspecified osteoarthritis, unspecified site
CPT/HCPCS: 99213; G0463